=== PATIENT | male | born 1950 | race Caucasian/White ===

== ENCOUNTER 2025-02-26 15:44 | Inpatient (IN) | payer BC, MEDICARE ==
[~2025-02-26] VITALS: Ht 180.3 cm; Wt 86.4 kg
--- NOTE | 2025-02-26 16:31 | RADIOLOGY REPORT ---
DI KNEE, COMP 4 VW MIN, INDICATION: RIGHT KNEE PAIN TECHNICAL DATA: Frontal , oblique and lateral views were obtained of the right knee. COMPARISON: None FINDINGS: No fracture is identified. Medial, lateral and patellofemoral compartment joint spaces are maintained. Alignment is anatomic. Soft tissues are within normal limits. A joint effusion is demonstrated. Distal femur hardware appears intact. IMPRESSION: No acute fracture or dislocation of the right knee. Small knee joint effusion.
[2025-02-26] MEDS: HYDROcodone/acetaminophen 10/325mg tab PO ONE (17:21)
[2025-02-26 17:53] LABS: MEAN PLATELET VOLUME 8.5 FL (7.4-10.4); RED CELL DISTRIBUTION WIDTH 13.6 % (11.5-14.5)
[2025-02-26 18:10] LABS: CREATININE 0.94 MG/DL (0.60-1.10); TOTAL CARBON DIOXIDE 28.7 MMOL/L (24-32); eCRCL 76 ML/MIN; eGFR 79 ML/MIN
[2025-02-26] MEDS ORDERED: iohexol 300mg/ml 100ml inj. ONE (18:14)
--- NOTE | 2025-02-26 18:44 | Physician Documentation ---
History of Present Illness ~ Chief Complaint: Knee Pain Stated Complaint: R KNEE PAIN Time Seen by MD: 16:29 Primary Medical Doctor: None HPI A very pleasant 74-year-old male that presents to the emergency department for evaluation of significant pain associated with warmth and swelling to his right knee. 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 Drastically reduced range of motion unable to bear weight on the joint. Patient denies fev er chills nausea vomiting diarrhea at this time but does report progressive severe pain in the right knee. Patient reports he has had previous injuries to that knee but denies any injury today any falls twisting straining pop sensation or any other injury. No other symptoms reported at this time. Patient does not take any blood thinners. Tetanus witin 5 years: Yes Medication Reconciliation Allergies: Coded Allergies: Penicillins (Unverified Allergy, Unknown, 02/26/25) codeine (Unverified Allergy, Unknown, 02/26/25) Past Medical History Past Medical History: Hypertension, Hernia Past Surgical History: orthopedic surgeries Other Past Surgical History: hernia repair Alcohol Use: Abuse Physical Exam Vital Signs: Temperature: 99.2, Source: Temporal, Heart Rate: 98, Respiratory Rate: 18, BP: 103/63, Pulse Oximetry: 97, Weight: 86.360 Oxygen Flow Rate: 0 Progress Results/Orders Results/Orders Orders - MARIELOS PURDYP Us Soft Tissue Mass (02/26/25 16:44) Ct Lower Extremity (02/26/25 17:10) * Iv Access / Saline Lock * (02/26/25 17:11) Stat Ekg (02/26/25 ) Normal Saline 500ml Iv Soln (Sodium Chlo (02/26/25 19:30) Ceftriaxone/O4f-Fwqibpfv 1gm (Rocephin 1 (02/26/25 19:30) LA (02/26/25 19:26) Culture Blood (02/26/25 19:26) Completed Orders - MARIELOS PURDY KENNEL AIDE Us Soft Tissue Mass (02/26/25 16:44) Cbc/Diff (02/26/25 16:44) CMP (02/26/25 16:44) Hydrocodone/Apap 10/325 ([place] 10/325mg (02/26/25 16:55) Ct Lower Extremity (02/26/25 17:10) Iohexol 300mg/Ml 100ml Inj. (Omnipaque-3 (02/26/25 18:14) Metoprolol Tartrate Tablet (Lopressor Ta (02/26/25 19:30) Medications Received in ER Medications (Trade) Dose Ordered Sig/Dorie Route PRN Reason Start Time Stop Time Status Last Admin Dose Admin ([place] 10/325mg tab) 1 tab ONCE ONCE PO 02/26/25 16:55 02/26/25 16:56 DC 02/26/25 17:21 1 TAB Vital Signs 02/26/25 02/26/25 02/26/25 02/26/25 15:57 17:21 18:04 18:57 Temp 99.2 Pulse 98 110 Resp 16 18 18 16 B/P (MAP) 103/63 126/72 (90) Pulse Ox 97 99 O2 Flow Rate 0 02/26/25 19:12 Resp 19 B/P (MAP) Laboratory Tests Test 02/26/25 17:32 White Blood Count 15.2 H Red Blood Count 4.64 L Hemoglobin 14.3 Hematocrit 41.2 L Mean Corpuscular Volume 88.8 Mean Corpuscular Hemoglobin 30.9 Mean Corpuscular Hemoglobin Concent 34.8 Red Cell Distribution Width 13.6 Platelet Count 273 Mean Platelet Volume 8.5 Neutrophils (%) (Auto) 87.5 H Lymphocytes (%) (Auto) 4.9 L Monocytes (%) (Auto) 7.1 Eosinophils (%) (Auto) 0.1 Basophils (%) (Auto) 0.4 Neutrophils # (Auto) 13.3 H Lymphocytes # (Auto) 0.7 L Monocytes # (Auto) 1.1 H Eosinophils # (Auto) 0.0 Basophils # (Auto) 0.1 CBC Comment Sodium Level 136 Potassium Level 4.0 Chloride Level 102 Carbon Dioxide Level 28.7 Anion Gap 5 L Blood Urea Nitrogen 13 Creatinine 0.94 Estimated GFR/1.73 m2 79 BUN/Creatinine Ratio 13.8 Glucose Level 165 H Calcium Level 8.5 Total Bilirubin 0.7 Aspartate Amino Transf (AST/SGOT) 19 Alanine Aminotransferase (ALT/SGPT) 28 Alkaline Phosphatase 85 Total Protein 7.4 Albumin 3.8 Globulin 3.6 Albumin/Globulin Ratio 1.1 Chemistry Comments Medical Decision Making Additional information obtaine: other Findings 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, 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 Chief Complaint: Acute right knee pain, warmth, swelling, inability to bear weight History: Onset: Acute, several hours after walking with backpack blower No trauma, fall, twisting, or popping No fever, chills, nausea, vomiting, or diarrhea Progressive severe pain History of prior knee injuries No anticoagulant use Exam: Right knee: Significant warmth, swelling, severe pain, markedly reduced ROM, unable to bear weight No erythema Diagnostics: Labs: No leukocytosis X-ray: No fracture Ultrasound: Effusion present CT: Pending for further evaluation of effusion/septic joint Assessment: Acute monoarthritis with effusion and severe functional impairment. Differential includes septic arthritis, crystalline arthropathy (gout/pseudogout), acute osteoarthritis flare, and less likely traumatic or inflammatory etiologies. Septic arthritis is a critical consideration given the acute onset, severe pain, warmth, effusion, and inability to bear weight, despite absence of fever or leukocytosisthese findings do not exclude infection. Osteoarthritis and crystalline arthropathy remain possible, but the degree of acute functional loss and effusion is concerning for infection. Plan: Urgent arthrocentesis is indicated to evaluate for septic arthritis, as synovial fluid analysis (WBC count, Gram stain, culture, crystal analysis) is the most accurate diagnostic test and essential for early management decisions. Synovial fluid should be sent for cell count, differential, Gram stain, culture, and crystal analysis. Empiric antibiotics should be considered if clinical suspicion for septic arthritis remains high after aspiration, pending culture results. Continue supportive care and monitor for systemic symptoms. CT results will further inform management if effusion is large or loculated. MDM Rationale: The acute, atraumatic presentation with effusion and severe functional loss warrants exclusion of septic arthritis, as delay in diagnosis can result in significant morbidity. Absence of fever and normal peripheral WBC do not rule out septic arthritis. Arthrocentesis is both diagnostic and therapeutic, and may provide temporary symptom relief. Other causes (crystalline, OA, trauma) will be considered based on synovial fluid findings and imaging. Disposition: Await synovial fluid analysis and CT results. Reassess for systemic involvement. Consult orthopedics/rheumatology as indicated by findings. General Diff Dx:Considerations: Include: Abrasion, Contusion, Fracture, Hematoma, Laceration, Malunion, Neurovascular injury, Open fracture, Sprain, Ulcer, Other Knee Diff Dx:Considerations: Include: Abrasion, Arthritis, Contusion, DJD, Fracture-femur, Fracture-fibula, Fracture-patella, Fracture-tibia, Gout, Hematoma, Laceration, Meniscus injury, Neurovascular injury, Open fracture, Rheumatoid arthritis, Septic, Sprain, Sprain-MCL, Sprain-LCL, Sprain-ACL, Sprain-PCL, Other Ankle Diff Dx:Considerations: Include: Abrasion, Arthritis, Contusion, DJD, Fracture-metatarsal, Fracture-fibula, Fracture-tarsal, Fracture-tibia, Gout, Hematoma, Laceration, Malunion, Neurovascular injury, Nonunion, Open fracture, Osteomyelitis, Rheumatoid arthritis, Sprain, Septic, Ulcer, Other Foot Diff Dx:Considerations: Include: Abrasion, Arthritis, Cellulitis, Contusion, Dislocation, DJD, Fracture-metatarsal, Fracture-phalynx, Fracture-tarsal, Gout, Hematoma, Ingrown toenail, Laceration, Malunion, Neurovascular injury, Open fracture, Paronychia, Puncture, Rheumatoid, Sprain, Septic, Subungual hematoma, Ulcer, Other Toe Diff Dx:Considerations: Include: Abrasion, Cellulitis, Contusion, Dislocation, Felon, Fracture, Hematoma, Laceration, Neurovascular injury, Open fracture, Paronychia, Subungual hematoma, Other Departure Referrals: NO PRIMARY CARE PROVIDER (PCP) MARIELOS PURDY Feb 26, 2025 18:44
--- NOTE | 2025-02-26 18:55 | RADIOLOGY REPORT ---
ULTRASOUND SOFT TISSUE: REASON FOR EXAM: Swelling to the right knee rule out septic joint versus effusion. TECHNIQUE: Real-time sector scans in the transverse and longitudinal planes were obtained through the right knee. FINDINGS: There is a collection of fluid within the soft tissues at the anterior aspect of the right knee, predominantly superior to the patella and likely coming from the joint space. No fluid is seen anterior to the patella. IMPRESSION: Fluid superior to the patella likely within the suprapatellar bursa. Note that this study does not distinguish sterile knee effusion from a septic joint.
--- NOTE | 2025-02-26 19:08 | RADIOLOGY REPORT ---
INDICATION: Pain swelling warmth to right knee, rule out septic joint versus cellulitis COMPARISON: None TECHNIQUE: CT of the right knee was performed with contrast. Volume transverse images were obtained and reconstructed in multiple planes using bone and soft tissue algorithms. 100 mL of Omni 300 was injected. Radiation Dose Information: CT Dose: CTDI volume is 7.6 mGy. Dose-length product is 303 mGy*cm FINDINGS: The alignment is normal. No acute fracture or dislocation. Surgical fixation screws are seen in the lateral distal femur. Moderate effusion is seen in the suprapatellar recess. Septic joint is not excluded. The soft tissues are normal. IMPRESSION: 1. No acute fracture or dislocation. 2. Moderate effusion is seen in the suprapatellar recess. Septic joint is not excluded. All CT scans at this medical facility are performed using dose modulation techniques as appropriate to a performed exam including the following: Automated exposure control was utilized; adjustment of the MA and/or KV according to patient size; and use of iterative reconstruction technique.
[2025-02-26] MEDS: normal saline 500ml IV soln 500 ML IV SCH (20:08)
[2025-02-26] MEDS ORDERED: ATOR40TA72 PO (20:22)
[2025-02-26] MEDS ORDERED: METO25TA6 PO (20:22)
[2025-02-26] MEDS ORDERED: APIX5TAB3 PO (20:22)
[2025-02-26] MEDS ORDERED: ACET-3669 PO (20:22)
[2025-02-26] MEDS ORDERED: MELA3CAP2 PO (20:22)
[2025-02-26] MEDS ORDERED: TAMS-55 PO (20:22)
[2025-02-26] MEDS ORDERED: TURM500C4 PO (20:22)
[2025-02-26] MEDS ORDERED: TAMS-55 (20:22)
[2025-02-26] MEDS ORDERED: FLUT16SP26 BOTHNARES (20:22)
[2025-02-26] MEDS ORDERED: magnesium Cl slow-release 64mg tablet PO PRN (20:35)
[2025-02-26] MEDS ORDERED: ondansetron/PF 4mg/2ml inj IV PRN (20:35)
[2025-02-26] MEDS ORDERED: potassium Cl 20 mEq SR tablet PO PRN (20:35)
[2025-02-26] MEDS ORDERED: HYDROcodone/acetaminophen 5mg/325mg tablet PO PRN (20:35)
[2025-02-26] MEDS ORDERED: magnesium sulf-water 2g/50mL 50 ML IV PRN (20:35)
[2025-02-26] MEDS ORDERED: magnesium sulf-water 4G/100mL 100 ML IV PRN (20:35)
[2025-02-26] MEDS ORDERED: potassium Cl 40MEQ/1/2NS 520ml 520 ML IV PRN (20:35)
[2025-02-26] MEDS: morphine 4 MG/ML inj SYRINge IV ONE (21:03)
[2025-02-26] MEDS: ondansetron/PF 4mg/2ml inj IV ONE (21:03)
[2025-02-26 21:05] LABS: APTT 31 SECONDS (22-32)
[2025-02-26] MEDS: LIDOcaine 1% 30ml preserv. free vial IJ STA (21:05)
[2025-02-26] MEDS: amiodarone 150mg/dext, iso-os 100 ML IV ONE (21:13)
[2025-02-26 21:15] LABS: PRO BRAIN NATRIURETIC PEPTIDE 1162 PG/ML (0-125)
[2025-02-26] MEDS: amiodarone/D5 360MG/200ML BAG 200 ML IV SCH (21:58)
[2025-02-26] MEDS: CefTRIAXone/D5W-Rocephin 1gm 50 ML IV ONE (22:03)
[2025-02-26] MEDS: normal saline 1000ml 1,000 ML IV SCH (22:09)
[2025-02-26] MEDS: VANCOMYCIN 1.75GM/WATER FOR INJ (PEG) 350 ML IVPB IV ONE (22:43)
[2025-02-26 22:53] LABS: LEUKOCYTE ESTERASE ,URINE NEGATIVE (Neg); NITRITES, URINE NEGATIVE (Neg); OCCULT BLOOD,URINE SMALL (Neg)
[2025-02-26 22:57] LABS: UA COLLECTION TYPE CLN CATCH MIDSTREAM
[2025-02-26 23:00] LABS: SQUAMOUS EPITHELIAL CELL,UR FEW /LPF (FEW)
--- NOTE | 2025-02-26 23:09 | HISTORY AND PHYSICAL-Residence ---
History & Physical Providers to Resident Creating Document: VAHIDMICHEAL RES ~ History of Present Illness Primary Medical Doctor: None Reason for Admit\Complaint: Knee pain History of Present Illness This is a 74 year old male with past medical history of hypertension, knee replacement surgery presents to the ED with complaints of right knee pain. 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 He says that It started all of a sudden, with associated swelling. He rated the pain as 9/10 in intensity initially and was unable to bear weight on his right leg with the pain. Patient denies fevers, chills nausea vomiting diarrhea at this time but does report progressive severe pain in the right knee. Patient denies injuring his knee today and never had similar complaint in the past . However on examination there was a laceration present on the right leg and patient says that he scraped his leg last week when he was walking. Allergies: Coded Allergies: Penicillins (Unverified Allergy, Unknown, 02/26/25) codeine (Unverified Allergy, Unknown, 02/26/25) Home Medications Home Medications Active Reported Turmeric 500 mg Capsule (Turmeric/Turmeric Root Extract) 450 Mg-50 Mg Capsule 1 Cap PO Q12H 30 Days Melatonin 3 Mg Capsule 1 Cap PO HS 30 Days Acetaminophen ER (Acetaminophen) 650 Mg Tablet.er 1 Tab PO Q8H 21 Days Flomax* (Tamsulosin HCl) 0.4 Mg Cap.sr.24h 0.4 Mg PO DAILY Flomax* (Tamsulosin HCl) 0.4 Mg Cap.sr.24h Metoprolol Tartrate 25 Mg Tablet 1 Tab PO BID Atorvastatin Calcium 40 Mg Tablet 1 Tab PO DAILY Eliquis (Apixaban) 5 Mg Tablet 1 Tab PO BID Fluticasone Propionate 50 Mcg/Actuation [place].susp 1 Sprays BOTHNARES DAILY Past Medical History Past Medical History Hypertension Seizure Past Surgical History Surgical History Comment Knee replacement surgeries, both knees Past Social History Social History Comment Patient currently lives in a motor home along with his Patient has smoked on and off for the last 55 years, 5-6 cigarettes per day Stopped drinking alcohol four years ago No illicit drug use PCP at [facility]. Alcohol Use: Abuse ROS ROS Constitutional: Denies: no symptoms reported, Eyes: Denies: no symptoms reported ENT: Denies: no symptoms reported Respiratory: Denies: No symptoms reported Cardiovascular: Denies: No symptoms reported Gastrointestinal: Denies: No symptoms reported Genitourinary: Denies: no symptoms reported Neurological: Denies: no symptoms reported Musculoskeletal: Denies: Right knee pain Endocrine: Denies: no symptoms reported Exam Vitals: Vital Signs Date Time Temp Pulse Resp B/P (MAP) Pulse Ox O2 Delivery O2 Flow Rate FiO2 02/26/25 21:03 18 02/26/25 21:00 127 117/63 (81) 96 02/26/25 15:57 99.2 0 General: General: Awake, alert, oriented, not in acute distress HEENT: Conjunctive are pink, sclerae clear, no icterus, Neck: Supple, no JVD, no lymphadenopathy. Chest: Normal vesicular breath sounds heard, no wheezing, crackles. Cardiovascular: S1-S2 heard no gallops, no rubs, no murmurs Abdomen: soft, no tenderness, no guarding, no rigidity, no rebound tenderness Extremities: No edema, no cyanosis, peripheral pulsations intact Central Nervous System: No focal neurological deficits Musculoskeletal: Right knee joint is swollen, warm to touch, no erythema. Tender to palpation. Small Laceration present on the right leg (morales area). Skin: Warm and dry. Diagnostic Data Last Recorded Lab Results: 02/27/25 0616 02/27/25 0616 Diagnostic Data: Laboratory Tests Test 02/26/25 19:46 Activated Partial Thromboplast Time 31 SECONDS (22-32) Coagulation Comments Advance Care Planning Advanced Care plannin - 30 Minutes (Full code) Additional Plan Acute onset knee pain Likely due to underlying septic arthritis Sepsis -Patient meets SIRS criteria -Increased WBC count 15.2, procal normal -Lactic acid normal -CRP elevated 1.08, ESR normal -Right knee x-ray shows- No acute fracture or dislocation of the right knee. Small knee joint effusion. -Ultrasound findings showed collection of fluid within the soft tissues at the anterior aspect of the right knee, -predominantly superior to the patella and likely coming from the joint space. No fluid is seen anterior to the patella. -Lower extremity CT shows No acute fracture or dislocation. Moderate effusion is seen in the suprapatellar recess. Septic joint is not excluded. -arthrocentesis has been done in the ED and sent for analysis -Started patient on fluids NS 100 cc/hours -started patient on vancomycin and ceftriaxone. New onset AFib with RVR Yonis Vasc score 2 Patient says he has never been diagnosed or told about AFib in the past. Patient takes Eliquis at home, but is unsure why he takes it. EKG showed AFib with heart rate of 120 Consider starting metoprolol 12.5 b.i.d. once blood pressure is controlled. Patient denies any complaints of chest pain, palpitations, shortness of breath. Hypertension- Current blood pressure 117/63 Continue home medications once med rec is done Code status: Full code DVT profile: Subcu Heparin Diet: Heart healthy Micheal Garcia PGY-1 Date of Service: Feb 27, 2025 Billing Provider: FLOR TREVINO MD Addendum I agree with the residents assessment and plan as below: 74 year old male admitted with acute knee pain Plan: follow up arthrocentesis results continue vancomycin and ceftriaxone mIVF CCT 52 min using HIPPA compliant A/V technology MICHEAL GARCIA, RES Feb 26, 2025 23:09 FLOR TREVINO MD Feb 27, 2025 09:14
[2025-02-27] VITALS (9 sets, daily range): BP systolic 97–134; BP diastolic 55–75; PULSE 86–112; RESP 14–20; TEMP 97.2–98.6; O2SAT 95–98
--- NOTE | 2025-02-27 06:43 | ELECTROCARDIOGRAPH REPORT ---
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 Quintin Lake Measurements Intervals [place] Rate: 119 P: 0 AL: 0 QRS: 32 QRSD: 87 T: 76 QT: 275 QTc: 387 Interpretive Statements Atrial fibrillation Ventricular premature complex Low voltage, extremity leads Nonspecific repol abnormality, diffuse leads Electronically Signed On 02-27-2025 7:03:[address] Quintin Lake Please click the below link to view image of tracing.
[2025-02-27 06:44] LABS: MEAN PLATELET VOLUME 8.7 FL (7.4-10.4); RED CELL DISTRIBUTION WIDTH 14.0 % (11.5-14.5)
[2025-02-27 06:58] LABS: CHOL/HDL RATIO 1.9 (0.00-4.99); CREATININE 0.85 MG/DL (0.60-1.10); LDL CHOLESTEROL 41 MG/DL (50-100); TOTAL CARBON DIOXIDE 26.9 MMOL/L (24-32); eCRCL 84 ML/MIN; eGFR 89 ML/MIN
[2025-02-27] MEDS: K and/or MAG REPLACEMENT MC SCH (08:00)
[2025-02-27] MEDS: docusate sod 100mg capsule PO SCH (08:18)
[2025-02-27] MEDS: normal saline 1000ml 1,000 ML IV ONE (09:59)
[2025-02-27] MEDS: HYDROcodone/acetaminophen 10/325mg tab PO PRN (12:30)
[2025-02-27] MEDS: vancomycin/NS 1 GM ADD-VANTAGE 250 ML IV SCH (12:31)
[2025-02-27 15:16] LABS: LYMPHOCYTES,SYNOVIAL FLUID 2.0 % (0-75); MONOCYTES,SYNOVIAL FLUID 3.0 % (0-0); NEUTROPHILS,SYNOVIAL FLUID 95.0 % (0-25)
[2025-02-27 15:17] LABS: APPEARANCE,SYNOVIAL FLUID CLOUDY; COLOR,SYNOVIAL FLUID YELLOW; SYN RBC 6500 /CU MM (0); SYN WBC 88000 /CU MM (0-200)
[2025-02-27 15:19] LABS: CRYSTAL ID, SYN FLD CA PYROPHOSPHATE; SYNOVIAL FLUID CRYSTALS QT FEW
[2025-02-27] MEDS: metoprolol tartrate 1mg/ml inj IV ONE (17:13)
[2025-02-27] MEDS: CefTRIAXone/D5W-Rocephin 1gm 50 ML IV SCH (17:15)
--- NOTE | 2025-02-27 17:17 | PROGRESS NOTE- Residence ---
Progress Note - Resident Providers to CC Resident Creating Document: ALLA ORONA RES ~ Central Line/PICC still needed: N\A Potter-Non Protocol Potter Indications Met/Not Met: F/C Indications Not Met Antibiotic Timeout Antibiotic Ordered?: Yes Subjective Patient examined bedside. He complains of pain in his right knee, not able to bear weight, not able to move. There is swelling, tenderness and localized received temperature in his right knee. He rates the pain as 7/10, dull aching, nonradiating. Objective Vital Signs Date Time Temp Pulse Resp B/P (MAP) Pulse Ox O2 Delivery O2 Flow Rate FiO2 02/27/25 15:00 98.1 112 20 109/65 (80) 97 Room Air 02/26/25 15:57 0 Result Diagram: 02/27/2561502/27/25 06 General: Well alert, well oriented, not confused, not agitated, not in acute distress, well cooperated during the physical. HEENT: Malar rash on his face Conjunctive are pink, sclerae clear, no icterus, pupil is equal in both sides, reactive to light, no ear discharge, no pharyngeal erythema or an edema. Neck: Supple, no JVD, no lymphadenopathy and thyromegaly. Chest: Equal air entry on both lungs, no added sounds, no wheeze. Cardiovascular: S1-S2 irregular tachycardia no gallops, no rubs, no murmurs Abdomen: No visible peristalsis, Bowel sounds present on auscultation, soft, nontender, no guarding, no rigidity Extremities: Swelling of the right knee, with tenderness and localized raised temperature, scar from previous ACL repair surgery on right knee capillary refill intact, peripheral pulsations are intact on both sides Central Nervous System: No focal neurological deficits, no motor or sensory weakness in all 4 extremities, could move all 4 extremities, 2+ deep tendon reflexes, negative Babinski. Musculoskeletal: No joint swelling, deformities, inflammations, and no scoliosis and back tenderness Skin: Warm and dry. Coagulation Studies Laboratory Tests Test 02/26/25 19:46 Activated Partial Thromboplast Time 31 SECONDS (22-32) Coagulation Comments Counseling Services Smoking & Tobacco Cessation: > 10 Minutes Advance Care Planning Advanced Care planning: N/A Assessment Assessment This is a 74-year-old man with past medical history of hypertension, DVT, mechanical fall and traumatic head injury with 1 episode of seizure, alcohol use disorder sober since 60 years, who came to the hospital with complaints of swelling and pain in his right knee, unable to bear weight. He underwent arthrocentesis in the ER and was started on ceftriaxone vancomycin. Arthrocentesis shows a pruritic picture with calcium pyrophosphate crystals. He is currently in sepsis with a new onset AFib with RVR managed by fluid resuscitation and metoprolol. Imaging shows an associated bursitis. Orthopedic surgeon, Dr. Wheat was consulted, awaiting recommendation. Plan Plan Sepsis due to septic arthritis Septic arthritis possibly due to pseudogout -sepsis criteria met with tachycardia, leukocytosis, suspected source of infection -WBC 15.3 and trending up, raised C-reactive protein, normal ESR -imaging including x-ray, ultrasound, CT shows inflammation around the joint pointing towards bursitis, not excluding septic arthritis -he underwent arthrocentesis in the ED [place] [address] with neutrophilia, RBC count of 6500 with calcium pyrophosphate crystals. Plan: -Patient received 2 L bolus fluids and is on 100 mL/hour fluid resuscitation -ceftriaxone 1 g IV, vancomycin pharmacy to dose day 2 -awaiting synovial fluid culture -orthopedic surgeon consulted, awaiting recommendation New onset AFib with RVR Yonis Vasc score 4 AFib most likely due to sepsis , TSH normal Heart rate ranging from 100s to 120s, asymptomatic. Ordered echo and U tox. Patient received loading dose of amiodarone in the ER. The patient is on Eliquis so past history of DVT, we will continue the same. The patient is on metoprolol tartrate 25 mg p.o. b.i.d. for hypertension, we will continue the same Monitor vitals. Comorbidities Hypertension -continue home medication metoprolol tartrate 25 mg p.o. b.i.d. History of DVT-continue home medication Eliquis 5 mg p.o. b.i.d. Dyslipidemia-continue home medication atorvastatin 40 mg p.o. daily BPH-continue home medication tamsulosin 0.4 mg p.o. daily Tobacco use disorder- patient educated to reduce and eventually quit smoking Code status: Full code DVT prophylaxis: Eliquis 5 mg p.o. b.i.d. Analgesia/sedation: Morphine/[place]/tube: PIV GI prophylaxis: None Nutrition: Heart healthy PT: Ordered. Prognosis: Guarded Disposition: Monitor vitals, continue medical management . Awaiting ortho recommendation, awaiting synovial fluid culture. Alla Orona MD PGY1, Internal Medicine [facility] Date of Service: Feb 27, 2025 Billing Provider: JUAN PABLO ANGEL MD Common Visit Codes: [id number] INP/OBS CARE(HIGH) ALLA ORONA, RES Feb 27, 2025 17:17 JUAN PABLO ANGEL MD Feb 28, 2025 07:17
[2025-02-28] VITALS (15 sets, daily range): BP systolic 87–117; BP diastolic 47–68; PULSE 99–120; RESP 12–23; TEMP 97.3–98.4; O2SAT 94–97
[2025-02-28 06:33] LABS: MEAN PLATELET VOLUME 9.3 FL (7.4-10.4); RED CELL DISTRIBUTION WIDTH 13.7 % (11.5-14.5)
[2025-02-28 06:55] LABS: CREATININE 0.71 MG/DL (0.60-1.10); TOTAL CARBON DIOXIDE 23.7 MMOL/L (24-32); eCRCL 100 ML/MIN; eGFR > 90 ML/MIN
--- NOTE | 2025-02-28 06:59 | RADIOLOGY REPORT ---
CHEST RADIOGRAPH Indication: PRE-OP Technique: Single frontal view of the chest was obtained Comparison: None IMPRESSION: Heart appears normal in size. The lungs appear clear without focal airspace opacity, effusion, or pneumothorax. Multiple right rib fractures posteriorly which appear age-indeterminate. Correlation with clinical history and findings is recommended. Consider CT if clinically indicated.
[2025-02-28] MEDS: potassium Cl 20 mEq SR tablet PO PRN (07:23)
[2025-02-28] MEDS ORDERED: metoprolol succinate 25mg (24-HOUR) SR. Tablet PO SCH (08:00)
--- NOTE | 2025-02-28 09:53 | ELECTROCARDIOGRAPH REPORT ---
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 LEONELA De Jesus Measurements Intervals [place] Rate: 105 P: 0 [place]: 0 QRS: 73 QRSD: 103 T: 82 QT: 306 QTc: 405 Interpretive Statements Atrial fibrillation Borderline low voltage, extremity leads Nonspecific repol abnormality, lateral leads Artifact in lead(s) I,II,aVR,aVL,aVF and baseline wander in lead(s) III,aVL,V1,V2,V4 Electronically Signed On 02-28-2025 19:41:[address] LEONELA De Jesus Please click the below link to view image of tracing.
[2025-02-28] MEDS ORDERED: BUPIVAcaine 2.5mg/ml inj 50ml vial (contains preservative) ONE (10:04)
[2025-02-28 10:11] LABS: INR 1.1 INR
[2025-02-28] MEDS ORDERED: labetalol 20mg/4ml (5mg/ml) syringe IV PRN (10:35)
[2025-02-28] MEDS ORDERED: ondansetron/PF 4mg/2ml inj IV PRN (10:35)
[2025-02-28] MEDS ORDERED: morphine 4 MG/ML inj SYRINge IV PRN ×4 (10:35→10:46)
[2025-02-28] MEDS: ringers solution, lacted 1,000 ML IV SCH (10:35)
[2025-02-28] MEDS ORDERED: HYDROmorphone inj. 0.5 MG/0.5 ML DISP.SYRIN IV PRN ×2 (10:35)
[2025-02-28] MEDS ORDERED: fentaNYL/PF 50MCG/1 ML 2ML syringe IV PRN ×2 (10:35)
[2025-02-28] MEDS ORDERED: enalaprilat 1.25mg/ml 2ml vial IV PRN (10:35)
[2025-02-28] MEDS ORDERED: fentaNYL /PF 50mcg/ml 5ml ampule ONE (10:40)
[2025-02-28] MEDS ORDERED: midazolam 1 mg/ML 2ml injection ONE (10:40)
[2025-02-28] MEDS ORDERED: propofol inj 20 ML IV ONE (10:50)
[2025-02-28] MEDS ORDERED: LIDOcaine 2% (20mg/ml) 5ml vial ONE (10:50)
--- NOTE | 2025-02-28 11:07 | PROGRESS NOTE- Residence ---
Progress Note - Resident Providers to CC Resident Creating Document: ALLA ORONA, TIFFANY ~ Central Line/PICC still needed: N\A Potter-Non Protocol Potter Indications Met/Not Met: F/C Indications Not Met Antibiotic Timeout Antibiotic Ordered?: Yes Subjective Patient examined bedside. Still complaining pain in his right knee, well controlled with medication. He is posted for arthroscopy with Dr. Wheat today. No complaints of chest pain, palpitation, shortness of breath, dizziness. No acute symptoms overnight. Objective Vital Signs Date Time Temp Pulse Resp B/P (MAP) Pulse Ox O2 Delivery O2 Flow Rate FiO2 02/28/25 10:34 116 18 97 02/28/25 08:00 Room Air 02/28/25 06:57 97.9 114/68 (83) 02/26/25 15:57 0 Result Diagram: 02/28/25 0542 02/28/25 0542 General: Well alert, well oriented, not confused, not agitated, not in acute distress, well cooperated during the physical. HEENT: Malar rash on his face Conjunctive are pink, sclerae clear, no icterus, pupil is equal in both sides, reactive to light, no ear discharge, no pharyngeal erythema or an edema. Neck: Supple, no JVD, no lymphadenopathy and thyromegaly. Chest: Equal air entry on both lungs, no added sounds, no wheeze. Cardiovascular: S1-S2 irregular tachycardia no gallops, no rubs, no murmurs Abdomen: No visible peristalsis, Bowel sounds present on auscultation, soft, nontender, no guarding, no rigidity Extremities: Swelling of the right knee, with tenderness and localized raised temperature, scar from previous ACL repair surgery on right knee capillary refill intact, peripheral pulsations are intact on both sides Central Nervous System: No focal neurological deficits, no motor or sensory weakness in all 4 extremities, could move all 4 extremities, 2+ deep tendon reflexes, negative Babinski. Musculoskeletal: No joint swelling, deformities, inflammations, and no scoliosis and back tenderness Skin: Warm and dry. Coagulation Studies Laboratory Tests Test 02/26/25 19:46 02/28/25 09:52 Activated Partial Thromboplast Time 31 SECONDS (22-32) Prothrombin Time 11.5 SECONDS (9.0-12.0) INR International Normalized Ratio 1.1 INR Coagulation Comments Assessment Assessment This is a 74-year-old man with past medical history of hypertension, DVT, mechanical fall and traumatic head injury with 1 episode of seizure, alcohol use disorder sober since 60 years, who came to the hospital with complaints of swelling and pain in his right knee, unable to bear weight. He underwent arthrocentesis in the ER and was started on ceftriaxone vancomycin. Arthrocentesis shows a pruritic picture with calcium pyrophosphate crystals. He is currently in sepsis with a new onset AFib with RVR managed by fluid resuscitation and metoprolol. Imaging shows an associated bursitis. Posted for arthroscopy with Dr. Wheat today. Plan Plan Inflammatory arthritis possibly due to pseudogout -vitals: AFib with RVR, systolic blood pressures in 110. -WBC and inflammatory markers downtrending today. -imaging including x-ray, ultrasound, CT shows inflammation around the joint pointing towards bursitis, not excluding septic arthritis -[place] [address] with neutrophilia, RBC count of 6500 with calcium pyrophosphate crystals. Plan: -Stop Fluids after surgery due to elevated NT proBNP. -stopped antibiotics since the arthritis might most likely be in inflammatory in etiology -awaiting synovial fluid culture -posted for arthroscopy today with Dr. Wheat -case discussed with ID, Dr. Cabrera. She recommended a wait for synovial fluid culture before doing a consultation. New onset AFib with RVR Yonis Vasc score 4 AFib most likely due to sepsis , TSH normal Heart rate ranging from 100s to 120s, asymptomatic. Awaiting echo. Patient on home medication Eliquis and metoprolol tartrate 25 mg p.o. b.i.d., which does not seem to be controlling his heart rate. We can not further increases his dose of metoprolol due to soft blood pressure. We will switch the medication to Cardizem extended release 60 mg q.12h Acute congestive heart failure with unknown ejection fraction Awaiting echo, NT proBNP 1162 Stopped fluids, held Lasix currently in view of ongoing inflammation Strict I&Os and daily weights. Hypokalemia Potassium 3.3, on hypokalemia/hypokalemia protocol. Comorbidities Hypertension -continue home medication metoprolol tartrate 25 mg p.o. b.i.d. History of DVT-continue home medication Eliquis 5 mg p.o. b.i.d. Dyslipidemia-continue home medication atorvastatin 40 mg p.o. daily BPH-continue home medication tamsulosin 0.4 mg p.o. daily Tobacco use disorder- patient educated to reduce and eventually quit smoking Code status: Full code DVT prophylaxis: Eliquis 5 mg p.o. b.i.d. Analgesia/sedation: Morphine/[place] Line/tube: PIV GI prophylaxis: None Nutrition: Heart healthy PT: Ordered. Prognosis: Guarded Disposition: Monitor vitals, continue medical management . Awaiting synovial fluid culture. Alla Orona MD PGY1, Internal Medicine [facility] Date of Service: Feb 28, 2025 Billing Provider: JUAN PABLO ANGEL MD Common Visit Codes: [id number] INP/OBS CARE(HIGH) ALLA ORONA, RES Feb 28, 2025 11:07 JUAN PABLO ANGEL MD Mar 01, 2025 06:42
[2025-02-28] MEDS ORDERED: ROPIVAcaine 0.5% (5mg/ml) 30ml vial ONE ×2 (11:14→11:21)
[2025-02-28] MEDS ORDERED: dexamethasone sod phosphate 4mg/ml inj. ONE (11:14)
--- NOTE | 2025-02-28 11:29 | ANESTHESIA RECORDS ---
Nerve Block Providers to CC ~ Diagnosis: Nerve Block requested by: MAURA SANTO MD Neuraxial/Peripheral Nerve Block requested for Post-operative analgesia by Physician above DIAGNOSIS: Post-operative pain. (Body Area) Shoulder: [ ] Arm: [ ] Hand: [ ] Hip: [ ] Knee: [___Right ] Ankle: [ ] Foot: [ ] Leg: [ ] Abdomen: [ ] Other: [ ] Post-operative pain expected to be/is inadequately managed by oral or IV medicines. Regional anesthetic expected to facilitate rehabilitation and/or discharge from facility. Other:[ ] Procedure Performed: Femoral / Saphenous: Right Time out Done?: Yes Time of Time out: 11:55 Procedure Details: PROCEDURE DETAILS: Risks, benefits and alternatives explained Informed consent obtained, and patient wishes to proceed Conscious sedation with indicated monitors Patient positioned, pertinent anatomy defined, sterile technique used Needle used: [ ] 3 1/8 inch Stimuplex Ultra 22ga [x ] 4 inch Stimuplex Ultra 20ga [ ] 6 inch Stimuplex Ultra 20ga [ ] 6 inch, Quikbloc over the needle catheter set 20ga [ ] 4 inch Quikbloc over the needle catheter set 20ga [ ]Other: [ ] Loss of twitch @ [ 0.4 ]mA [x ] Single Injection [ ] Catheter Ultrasound Guidance Used: [x ] Yes [ ] No Attempts:[ once ] Medicines injected: [ ]Clonidine Amt:[ ] [x ]Dexamethasone Amt:[____3 mgs ] [x ]Ropivacaine Amt:[ 0.5% 30 cc ] [ ]Bupivacaine Amt:[ ] [ ]Lidocaine Amt:[ ] [ ]Exparel 1.33%:[ ] [ ]Epinephrine Amt[ ] [ ]Other: [ ] Intermittent aspiration during local anesthetic administration No symptoms of intraneural or intravenous injection Patient tolerated procedure well Comments Right Femoral nerve block. Pt supine. Easy visualization of the Femoral nerve and Femoral vessels with ultrasound probe below the groin. Needle entered from lateral approach. 1% xylocaine local anesthetic. Patellar twitch noted Meaningful conversation t throughout. No Pain or discomfort during injection DESI OROURKE MD Feb 28, 2025 11:29
[2025-02-28] MEDS: VANCOMYCIN LEVEL IV ONE (11:45)
[2025-02-28] MEDS ORDERED: ondansetron/PF 4mg/2ml inj ONE (12:01)
--- NOTE | 2025-02-28 12:05 | CONSULTATION REPORT ---
History of Present Illness Providers to CC ~ Reason for Admit\Admit Dx: Knee pain Refering MD: None History of Present Illness Orthopedic consultation 02/28/2025. History of present illness: 74-year-old male a spontaneous onset atraumatic in nature of right knee pain and swelling. Swelling to the point where he was unable to ambulate and presented himself to the emergency room who presented with the potential for aseptic right knee was placed of the hospitalist service with and after a knee aspiration was performed intravenous antibiotics were started. I was consulted to evaluate for potential need for orthopedic decompression of the right knee. Past medical history is significant for atrial fib on Eliquis which was held upon his admission. Otherwise is enjoying good health was not diabetic. Review of systems: He specifically denies any other joint pain denies any traumatic accident or injury. Examination: Right knee shows a gross effusion and slight erythema with significant temperature gradient to his right knee. He has a 10 degree flexion contracture was knee secondary to pain and swelling and his limited flexion because of pain as well. He is unable to weightbear. Good distal pulses good capillary refill no active drainage. Calf muscles are soft palpation and has full range of motion with ankle dorsiflexion and plantar flexion with actively and passively without increased pain. Range of motion of the knee is painful and limited. X-rays are unremarkable with a history of potential ACL reconstruction done in several decades ago. Knee aspiration was positive for many white blood cells no specific cell count cultures are pending. CT scan shows a gross effusion can not rule out septic arthritis. Assessment: Septic arthritis right knee acute onset. Plan: This will require lavage using arthroscopic instrumentation and placement of the intra-articular knee drain. Patient has agreed to proceed with surgery obtained informed consent discussing with the indications risks benefits limitations and potential complications of the surgery. To be placed in the surgery schedule as soon as possible. Thank you for consultation Allergies: Coded Allergies: Penicillins (Unverified Allergy, Unknown, 02/26/25) codeine (Unverified Allergy, Unknown, 02/26/25) Home Medications Home Medications Active Reported Turmeric 500 mg Capsule (Turmeric/Turmeric Root Extract) 450 Mg-50 Mg Capsule 1 Cap PO Q12H 30 Days Melatonin 3 Mg Capsule 1 Cap PO HS 30 Days Acetaminophen ER (Acetaminophen) 650 Mg Tablet.er 1 Tab PO Q8H 21 Days Flomax* (Tamsulosin HCl) 0.4 Mg Cap.sr.24h 0.4 Mg PO DAILY Flomax* (Tamsulosin HCl) 0.4 Mg Cap.sr.24h Metoprolol Tartrate 25 Mg Tablet 1 Tab PO BID Atorvastatin Calcium 40 Mg Tablet 1 Tab PO DAILY Eliquis (Apixaban) 5 Mg Tablet 1 Tab PO BID Fluticasone Propionate 50 Mcg/Actuation [place].susp 1 Sprays BOTHNARES DAILY Past Family History Family History: Patient reports no known family medical history. Physical Exam Last Vital Signs Recorded: Temperature: 98.4, Source: Temporal, Heart Rate: 104, Respiratory Rate: 16, BP: 117/66, Pulse Oximetry: 97, Weight: 86.360 Results Diagram Lab Result Diagram: 02/28/25 0542 02/28/25 0542 MAURA SANTO MD Feb 28, 2025 12:05
[2025-02-28] MEDS ORDERED: acetaminophen 1,000mg/100ml IV 100 ML IV ONE (12:06)
--- NOTE | 2025-02-28 12:11 | OPERATIVE REPORT ---
Operative Report Providers to ~ Date of Procedure: Feb 28, 2025 Pre-Operative Diagnosis: Knee pain Post-Operative Diagnosis SAME as PRE-Op gross purulent appearing fluid was evacuated with the knee consistent with a septic arthritis acute onset Procedure Performed Rotation lavage arthroscopically assisted placement of the intra-articular knee Hemovac drain. Cultures were taken Surgeon: Blaine Santo MD Recovery Coach None Anesthesiologist: Naveen Springer Type of Anesthesia: General, Other (Right femoral nerve block for postop pain management by anesthesia) Findings: Intra-articular knee aspiration arthrotomy revealed gross purulent. Exited. Cu ltures were taken Complications None Prosthetics\Implants used: Hemovac medium Hemovac drain was placed intra-articularly exited out superiorly laterally Estimated Blood Loss: Less than 100 cc Specimen Removed: Exudate was removed Description of Procedure: Patient was taken to the operating room on an urgent basis due to suspicious suspicion for a septic arthritis.. Informed consents were obtained once in the operating room he was given a general anesthetic after being placed in the OR table in the supine position of the left leg was placed in an SCD device well- padded operative thigh tourniquet was placed in his right leg leg was now prepped and draped in usual sterile orthopaedic fashion. Surgical time-out was taken protocol and the case was begun. Esmarch was used after the leg had been elevated for 10+ minutes during the prep tourniquet was insufflated to 275. Tourniquet time was less than 30 minutes. Lateral incision was made following a previous incision entry into the knee was done of the trying to trocar and cannula gross purulent material exited out the knee through the cannula this was culture. The knee was now irrigated with nor mal saline through the cannula. 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 Medial compartment had some grade 2 and grade 3 degenerative changes of the medial femoral condyle lateral compartment was free of any degenerative changes meniscus were intact moderate to significant synovitis was noted throughout the knee making it difficulty to visualize cruciate tissues. After a proximally 2 L of normal saline has irrigated through the knee a medium Hemovac drain was placed through the lateral incision out exiting proximally and laterally to close suction. Arthroscopic portal was closed with a figure-of- eight and vertical mattress sutures of 4-0 nylon sterile dressings were applied and held in position with op-site dressing clean and Johny wrap. Tourniquet was released good distal pulses and capillary refill returned to the extremity were no apparent perioperative complications needle and sponge count was reported Counts repoted as correct: Yes BLAINE SANTO MD Feb 28, 2025 12:11
[2025-02-28] MEDS: diltiazem SR 60mg capsule (twice daily) PO SCH (19:49)
[2025-03-01] VITALS (8 sets, daily range): BP systolic 87–110; BP diastolic 54–65; PULSE 95–107; RESP 12–22; TEMP 97.2–98.6; O2SAT 92–97
[2025-03-01 06:45] LABS: MEAN PLATELET VOLUME 8.9 FL (7.4-10.4); RED CELL DISTRIBUTION WIDTH 13.5 % (11.5-14.5)
[2025-03-01 06:57] LABS: CREATININE 0.68 MG/DL (0.60-1.10); TOTAL CARBON DIOXIDE 26.1 MMOL/L (24-32); eCRCL 105 ML/MIN; eGFR > 90 ML/MIN
[2025-03-01] MEDS ORDERED: vancomycin/NS 1 GM ADD-VANTAGE 250 ML IV SCH (08:00)
[2025-03-01] MEDS: vancomycin/NS 1 GM ADD-VANTAGE 250 ML IV SCH (08:51)
--- NOTE | 2025-03-01 09:36 | CONSULTATION REPORT - RESIDENT ---
Consult Providers to CC Resident Creating Document: DILAN LUIS RES History of Present Illness Reason for Admit\Complaint: Right knee pain History of Present Illness 74-year-old male patient presented to the hospital with chief complaint of right knee pain. The patient states that he is currently [place], on Saturday while he was cleaning he suddenly noticed right knee pain, sharp type, 8/10 in intensity without radiation. As per patient this is the 2nd time that he has experienced this pain, he describes that the 1st time that he presented a similar pain was in 1983 when he had and ACL injury for which he underwent ACL repair. The patient states that six weeks ago he had a pack bite at the level of the right thigh after which it became really itchy and red, last for three weeks and then resolved by itself. The patient denied any secretion, fever, pain. The patient underwent arthrocentesis during the weekend [place] [address], neutrophils of 95 and calcium pyrophosphate in the synovial fluid. In addition the patient also has a synovial fluid culture which is showing Gram-positive cocci. Allergies: Coded Allergies: Penicillins (Unverified Allergy, Unknown, 02/26/25) codeine (Unverified Allergy, Unknown, 02/26/25) Home Medications Home Medications Active Reported Turmeric 500 mg Capsule (Turmeric/Turmeric Root Extract) 450 Mg-50 Mg Capsule 1 Cap PO Q12H 30 Days Melatonin 3 Mg Capsule 1 Cap PO HS 30 Days Acetaminophen ER (Acetaminophen) 650 Mg Tablet.er 1 Tab PO Q8H 21 Days Flomax* (Tamsulosin HCl) 0.4 Mg Cap.sr.24h 0.4 Mg PO DAILY Flomax* (Tamsulosin HCl) 0.4 Mg Cap.sr.24h Metoprolol Tartrate 25 Mg Tablet 1 Tab PO BID Atorvastatin Calcium 40 Mg Tablet 1 Tab PO DAILY Eliquis (Apixaban) 5 Mg Tablet 1 Tab PO BID Fluticasone Propionate 50 Mcg/Actuation [place].susp 1 Sprays BOTHNARES DAILY Past Medical History Past Medical History Hypertension DVT BPH Dyslipidemia Tobacco use disorder Past Surgical History Surgical History Comment Orthopedic surgery of the right knee in the 1983. Family History Family History: Patient reports no known family medical history. Exam Vitals: Vital Signs Date Time Temp Pulse Resp B/P (MAP) Pulse Ox O2 Delivery O2 Flow Rate FiO2 03/01/25 08:37 20 03/01/25 07:53 97.7 103 110/60 (77) 96 03/01/25 02:00 Room Air 03/01/25 00:50 0.0 93 Physical exam: General: Awake, alert, oriented. No acute distress. Well-developed, hydrated and well-built nourished. No anemia, Jaundice or clubbing. HEENT: Conjunctive are pink, sclerae clear, no icterus, pupil is equal in both sides, reactive to light, no ear discharge, no pharyngeal erythema or an edema. Neck: Supple, no adenopathy, thyromegaly. Trachea is midline. No JVD. Chest: Respiratory: Vesicular breath sounds. No ronchi, crepitus or wheezing. Resonance is normal upon percussion of all lung pandey. Cardiovascular: S1-S2 regular sinus rhythm and, regular rate, no gallops, no rubs, no murmurs Abdomen: No visible distention, Bowel sounds present on auscultation, on palpation: soft, nontender, no guarding, no rigidity. Extremities: No obvious deformities, no pitting edema bilaterally, capillary refill intact, peripheral pulsations are intact on both sides, presence of wound VAC at the level of the right knee. Neurologic: Mental status: alert and conscious, oriented to place, person and time, preserved memory, normal speech. Cranial nerves I-XII: Normal. Motor system: Preserved power, coordination, no evidenced involuntary movements, strength 5/5 in four extremities. Skin: Warm and dry. Diagnostic Data Last Recorded Lab Results: 03/01/25 0556 03/01/25 0556 Diagnostic Data: Laboratory Tests Test 02/26/25 19:46 02/28/25 09:52 Activated Partial Thromboplast Time 31 SECONDS (22-32) Prothrombin Time 11.5 SECONDS (9.0-12.0) INR International Normalized Ratio 1.1 INR Coagulation Comments Additional Plan Assessment and plan: 74-year-old male patient presented to the hospital with chief complaint of right knee pain. Coexistent septic arthritis with pseudogout: The patient presented to the hospital with chief complaint of right knee pain which started suddenly, as per patient he presented back bite six weeks ago after which he presented some redness without secretion at the level of the right thigh-this resolved by its own after three weeks. Initial right knee aspirate growing Gram-positive cocci, which is reinforced by the right knee culture obtained on 02/28/2025 at surgery with positive Gram stain. Recommendations: Continue vancomycin and naproxen. We will follow sensitivity which still pending. The patient will require antibiotic therapy for four weeks. Other comorbidities: New AFib with RVR, CHF, hypokalemia, hypertension, H/O of DVT, dyslipidemia, BPH, tobacco use disorder: Appropriately managed by primary team. Resident MD attestation: Patient was seen, examined and discussed with the attending MD, Dr. Angeles. Dilan Cevallos Internal Medicine Resident [facility] Date of Service: Mar 01, 2025 Billing Provider: RAH ANGELES MD Addendum Agree with above note. Patient seen and examined with Dr. Cevallos. He appears to have septic arthritis of knee due to gram-positive pathogen in setting of pseudogout. Continue vancomycin. Setting up IV antibiotics at current place of residence may be difficult. Will consider use of oral linezolid. DILAN LUIS, RES Mar 01, 2025 09:36 RAH ANGELES MD Mar 01, 2025 22:30
--- NOTE | 2025-03-01 16:25 | PROGRESS NOTE- Residence ---
Progress Note - Resident Providers to CC Resident Creating Document: ALLA ORONA, TIFFANY ~ Central Line/PICC still needed: N\A Potter-Non Protocol Potter Indications Met/Not Met: F/C Indications Not Met Antibiotic Timeout Antibiotic Ordered?: Yes Subjective Patient examined bedside. Postop day 1 arthroscopy with lavage and drain placement with Dr. Wheat. His swelling of the knee has significantly improved since yesterday, he is not complaining of any pain currently. No acute symptoms overnight. No complaints of palpitation, chest pain, dizziness, shortness of breath. Objective Vital Signs Date Time Temp Pulse Resp B/P (MAP) Pulse Ox O2 Delivery O2 Flow Rate FiO2 03/01/25 15:32 Room Air 0.0 03/01/25 15:31 96 21 03/01/25 11:00 97.7 100 17 88/54 (65) Result Diagram: 03/01/25 0556 03/01/25 0556 General: Well alert, well oriented, not confused, not agitated, not in acute distress, well cooperated during the physical. HEENT: Malar rash on his face Conjunctive are pink, sclerae clear, no icterus, pupil is equal in both sides, reactive to light, no ear discharge, no pharyngeal erythema or an edema. Neck: Supple, no JVD, no lymphadenopathy and thyromegaly. Chest: Equal air entry on both lungs, no added sounds, no wheeze. Cardiovascular: S1-S2 irregular tachycardia no gallops, no rubs, no murmurs Abdomen: No visible peristalsis, Bowel sounds present on auscultation, soft, nontender, no guarding, no rigidity Extremities: Right knee, bandaged. Surgical site looks clean, no soakage of bandage. Drain present. Central Nervous System: No focal neurological deficits, no motor or sensory weakness in all 4 extremities, could move all 4 extremities, 2+ deep tendon reflexes, negative Babinski. Musculoskeletal: No joint swelling, deformities, inflammations, and no scoliosis and back tenderness Skin: Warm and dry. Coagulation Studies Laboratory Tests Test 02/26/25 19:46 02/28/25 09:52 Activated Partial Thromboplast Time 31 SECONDS (22-32) Prothrombin Time 11.5 SECONDS (9.0-12.0) INR International Normalized Ratio 1.1 INR Coagulation Comments Assessment Assessment This is a 74-year-old man with past medical history of hypertension, DVT, mechanical fall and traumatic head injury with 1 episode of seizure, alcohol use disorder sober since 60 years, who came to the hospital with complaints of swelling and pain in his right knee, unable to bear weight. Synovial fluid grew strep dysgalactiae sensitive to ampicillin. He is currently on vancomycin. ID consulted. Postop day 1 arthroscopy with lavage and drain placement with Dr. Wheat. Awaiting echo results. Plan Plan Sepsis due to septic arthritis Septic arthritis possibly due to pseudogout -sepsis criteria met with tachycardia, leukocytosis, suspected source of infection -vitals: AFib with RVR, systolic blood pressures in 110. -WBC and inflammatory markers downtrending today. -synovial fluid culture grew strep dysgalactiae sensitive to ampicillin, ID consulted, awaiting recommendation. -postop day 1 arthroscopy with lavage and drain placement. Plan: -Stop Fluids after surgery due to elevated NT proBNP. -currently on vancomycin, day 3 New onset AFib with RVR Yonis Vasc score 4 AFib most likely due to sepsis , TSH normal Heart rate in 100s to 120s. Awaiting echo. Patient was transitioned to Cardizem 60 mg q.12h sustained release b.i.d. yesterday. We will increase his dose to Cardizem 180 mg extended release daily day. Continue Eliquis 5 mg p.o. b.i.d. Acute congestive heart failure with unknown ejection fraction Awaiting echo, NT proBNP 1162 Stopped fluids, held Lasix currently in view of ongoing inflammation Strict I&Os and daily weights. Hypokalemia Potassium 3.3, on hypokalemia/hypokalemia protocol. Comorbidities Hypertension -continue home medication metoprolol tartrate 25 mg p.o. b.i.d. History of DVT-continue home medication Eliquis 5 mg p.o. b.i.d. Dyslipidemia-continue home medication atorvastatin 40 mg p.o. daily BPH-continue home medication tamsulosin 0.4 mg p.o. daily Tobacco use disorder- patient educated to reduce and eventually quit smoking Code status: Full code DVT prophylaxis: Eliquis 5 mg p.o. b.i.d. Analgesia/sedation: Morphine/[place] Line/tube: PIV GI prophylaxis: None Nutrition: Heart healthy PT: Ordered. Prognosis: Guarded Disposition: Monitor vitals, continue medical management . Awaiting synovial fluid culture. Alla Orona MD PGY1, Internal Medicine [facility] Date of Service: Mar 01, 2025 Billing Provider: JUAN PABLO ANGEL MD Common Visit Codes: [id number] INP/OBS CARE(HIGH) ALLA ORONA, RES Mar 01, 2025 16:25 JUAN PABLO ANGEL MD Mar 02, 2025 07:52
[2025-03-01] MEDS: diltiazem CD 180mg cap (once-daily) PO SCH (16:30)
[2025-03-02] VITALS (12 sets, daily range): BP systolic 96–128; BP diastolic 55–80; PULSE 103–136; RESP 12–20; TEMP 97.2–97.6; O2SAT 95–98
[2025-03-02 07:20] LABS: MEAN PLATELET VOLUME 8.5 FL (7.4-10.4); RED CELL DISTRIBUTION WIDTH 13.5 % (11.5-14.5)
[2025-03-02 07:34] LABS: CREATININE 0.75 MG/DL (0.60-1.10); TOTAL CARBON DIOXIDE 25.0 MMOL/L (24-32); eCRCL 95 ML/MIN; eGFR > 90 ML/MIN
[2025-03-02] MEDS: diltiazem CD 120mg capsule (once-daily) PO SCH (08:03)
[2025-03-02] MEDS: magnesium hydroxide 30ml (MOM) UD suspension PO PRN (08:04)
[2025-03-02] MEDS: VANCOMYCIN LEVEL IV ONE (08:04)
[2025-03-02] MEDS ORDERED: magnesium Cl slow-release 64mg tablet PO PRN (08:50)
[2025-03-02] MEDS ORDERED: potassium Cl 20 mEq SR tablet PO PRN (08:50)
[2025-03-02] MEDS: CefTRIAXone 2gm/D5W 50ml BAG 50 ML IV SCH (09:15)
[2025-03-02] MEDS: potassium Cl 20 mEq SR tablet PO PRN (12:43)
--- NOTE | 2025-03-02 12:45 | PROGRESS NOTE- Residence ---
Progress Note - Resident Providers to CC Resident Creating Document: MAURA IRVINBENJAMIN Quesada, TIFFANY ~ Antibiotic Timeout Antibiotic Ordered?: Yes Subjective The patient has been evaluated at bedside. The patient reports some pain in the level of the right knee well controlled with pain medication. Objective Vital Signs Date Time Temp Pulse Resp B/P (MAP) Pulse Ox O2 Delivery O2 Flow Rate FiO2 03/02/25 11:00 97.5 104 20 109/71 (84) 96 Room Air 03/02/25 01:17 0.0 03/01/25 20:00 21 Physical exam: General: Awake, alert, oriented. No acute distress. Well-developed, hydrated and well-built nourished. No anemia, Jaundice or clubbing. HEENT: Conjunctive are pink, sclerae clear, no icterus, pupil is equal in both sides, reactive to light, no ear discharge, no pharyngeal erythema or an edema. Neck: Supple, no adenopathy, thyromegaly. Trachea is midline. No JVD. Chest: Respiratory: Vesicular breath sounds. No ronchi, crepitus or wheezing. Resonance is normal upon percussion of all lung pandey. Cardiovascular: S1-S2 irregular rhythm and rate, no gallops, no rubs, no murmurs Abdomen: No visible distention, Bowel sounds present on auscultation, on palpation: soft, nontender, no guarding, no rigidity. Extremities: No obvious deformities, no pitting edema bilaterally, capillary refill intact, peripheral pulsations are intact on both sides, presence of wound VAC at the level of the right knee. Neurologic: Mental status: alert and conscious, oriented to place, person and time, preserved memory, normal speech. Cranial nerves I-XII: Normal. Motor system: Preserved power, coordination, no evidenced involuntary movements, strength 5/5 in four extremities. Skin: Warm and dry. Result Diagram: 03/02/2561603/02/25616 Coagulation Studies Laboratory Tests Test 02/26/25 19:46 02/28/25 09:52 Activated Partial Thromboplast Time 31 SECONDS (22-32) Prothrombin Time 11.5 SECONDS (9.0-12.0) INR International Normalized Ratio 1.1 INR Coagulation Comments Assessment Assessment 74-year-old male patient presented to the hospital with chief complaint of right knee pain. Plan Plan Coexistent septic arthritis with pseudogout: The patient presented to the hospital with chief complaint of right knee pain which started suddenly. Initial right knee aspirate showed Streptococcus dysgalactiae equisimilis. The patient will require antibiotic therapy for four weeks with stop date on 03/28/2025 based on the procedure date. Recommendations: Ceftriaxone 2 g IV daily. The patient will require antibiotic therapy for four weeks-stop date on 03/28/2025. Patient will require PICC line. Other comorbidities: New AFib with RVR, CHF, hypokalemia, hypertension, H/O of DVT, dyslipidemia, BPH, tobacco use disorder: Appropriately managed by primary team. Resident MD attestation: Patient was seen, examined and discussed with the attending MD, Dr. yang. Benjamin Cevallos Internal Medicine Resident [facility] Date of Service: Mar 02, 2025 Billing Provider: KRISTIAN YANG DO Addendum Patient seen and examined with Dr. Maura Cevallos. Agree with the above assessment and plan. His GPC was identified as Strep dysgalactiae equisimilis today so antibiotics deescalated to Rocephin. Script also written for Rocephin so that they can be sent to [facility] and a share of cost assessed. He does have refrigeration in his camper is willing to come into town on a once a week basis for labs and PICC dressing changes. However, he is clear that he cannot afford a high share of cost so will see what he is quoted and then consider alternatives if needed BENJAMIN LUIS, RES Mar 02, 2025 12:45 KRISTIAN YANG DO Mar 02, 2025 22:43
[2025-03-02] MEDS: digoxin 250mcg/ml 2ml ampule IV ONE (13:53)
[2025-03-02] MEDS: metoprolol tartrate 1mg/ml inj IV ONE (15:43)
--- NOTE | 2025-03-02 17:47 | PROGRESS NOTE- Residence ---
Progress Note - Resident Providers to CC Resident Creating Document: ALLA ORONA, TIFFANY ~ Central Line/PICC still needed: N\A Potter-Non Protocol Potter Indications Met/Not Met: F/C Indications Not Met Antibiotic Timeout Antibiotic Ordered?: Yes Subjective Patient examined bedside. Postop day 2 arthroscopy with lavage and drain placement with Dr. Wheat. His swelling and pain of the knee has significantly. He continues to have AFib with RVR. The dosage of his medication diltiazem has been increased to 120 p.o. b.i.d. he worked with PT today. He had a heart rate of 200 after walking 15 ft. Heart rate continued to stay in 180s to 160s at rest per hour after walking. He is given digoxin 500 mcg and metoprolol 5 mg IV after which his heart rate is back to 110s. No complaints of palpitation, chest pain, dizziness, shortness of breath. Objective Vital Signs Date Time Temp Pulse Resp B/P (MAP) Pulse Ox O2 Delivery O2 Flow Rate FiO2 03/02/25 15:43 110 03/02/25 15:39 109/69 (82) 03/02/25 15:00 97.2 13 98 Room Air 03/02/25 01:17 0.0 03/01/25 20:00 21 Result Diagram: 03/02/25 0617 03/02/25 0617 General: Well alert, well oriented, not confused, not agitated, not in acute distress, well cooperated during the physical. HEENT: Malar rash on his face Conjunctive are pink, sclerae clear, no icterus, pupil is equal in both sides, reactive to light, no ear discharge, no pharyngeal erythema or an edema. Neck: Supple, no JVD, no lymphadenopathy and thyromegaly. Chest: Equal air entry on both lungs, no added sounds, no wheeze. Cardiovascular: S1-S2 irregular tachycardia no gallops, no rubs, no murmurs Abdomen: No visible peristalsis, Bowel sounds present on auscultation, soft, nontender, no guarding, no rigidity Extremities: Right knee, bandaged. Surgical site looks clean, no soakage of bandage. Drain present. Central Nervous System: No focal neurological deficits, no motor or sensory weakness in all 4 extremities, could move all 4 extremities, 2+ deep tendon reflexes, negative Babinski. Musculoskeletal: No joint swelling, deformities, inflammations, and no scoliosis and back tenderness Skin: Warm and dry. Coagulation Studies Laboratory Tests Test 02/26/25 19:46 02/28/25 09:52 Activated Partial Thromboplast Time 31 SECONDS (22-32) Prothrombin Time 11.5 SECONDS (9.0-12.0) INR International Normalized Ratio 1.1 INR Coagulation Comments Counseling Services Smoking & Tobacco Cessation: N/A Advance Care Planning Advanced Care planning: N/A Assessment Assessment This is a 74-year-old man with past medical history of hypertension, DVT, mechanical fall and traumatic head injury with 1 episode of seizure, alcohol use disorder sober since 6 years, who came to the hospital with complaints of swelling and pain in his right knee, unable to bear weight. Synovial fluid grew strep dysgalactiae sensitive to ampicillin. He is currently on ceftriaxone. ID consulted recommended intravenous ceftriaxone 2 mg till 03/28/2025. Postop day 2 arthroscopy with lavage and drain placement with Dr. Wheat. AFib with RVR poorly controlled with diltiazem. Heart rate goes up to 200 even while walking a short distance. Plan Plan Sepsis due to septic arthritis Septic arthritis possibly due to pseudogout -sepsis criteria met with tachycardia, leukocytosis, suspected source of infection -vitals: AFib with RVR -WBC and inflammatory markers downtrending -synovial fluid culture grew strep dysgalactiae sensitive to ampicillin, ID consulted recommended IV ceftriaxone 2 mg daily till 03/2025 -postop day 2 arthroscopy with lavage and drain placement. New onset AFib with RVR Hypertension Yonis Vasc score 4 AFib most likely due to sepsis , TSH normal The dosage of his medication diltiazem has been increased to 120 p.o. b.i.d. he worked with PT today. He had a heart rate of 200 after walking 15 ft. Heart rate continued to stay in 180s to 160s at rest per hour after walking. He is given digoxin 500 mcg and metoprolol 5 mg IV after which his heart rate is back to 110s. Acute congestive heart failure with unknown ejection fraction Echo essentially normal with ejection fraction of 70%. NT proBNP 1162 Stopped fluids, held Lasix currently in view of ongoing inflammation Strict I&Os and daily weights. Hypokalemia Potassium 3.3, on hypokalemia/hypokalemia protocol. Comorbidities History of DVT-continue home medication Eliquis 5 mg p.o. b.i.d. Dyslipidemia-continue home medication atorvastatin 40 mg p.o. daily BPH-continue home medication tamsulosin 0.4 mg p.o. daily Tobacco use disorder- patient educated to reduce and eventually quit smoking Code status: Full code DVT prophylaxis: Eliquis 5 mg p.o. b.i.d. Analgesia/sedation: Morphine/[place] Line/tube: PIV GI prophylaxis: None Nutrition: Heart healthy PT: Ordered. Prognosis: Guarded Disposition: Monitor vitals, continue medical management . Awaiting synovial fluid culture. Alla Orona MD PGY1, Internal Medicine [facility] Date of Service: Mar 02, 2025 Billing Provider: JUAN PABLO ANGEL MD Common Visit Codes: [id number] INP/OBS CARE(HIGH) ALLA ORONA, RES Mar 02, 2025 17:46 JUAN PABLO ANGEL MD Mar 03, 2025 07:30
[2025-03-02] MEDS: Ensure Enlive - 237ML PO SCH (18:03)
[2025-03-03] VITALS (9 sets, daily range): BP systolic 94–121; BP diastolic 57–77; PULSE 86–131; RESP 14–25; TEMP 97.3–97.9; O2SAT 95–96
[2025-03-03 07:11] LABS: MEAN PLATELET VOLUME 8.8 FL (7.4-10.4); RED CELL DISTRIBUTION WIDTH 13.5 % (11.5-14.5)
[2025-03-03 07:47] LABS: CREATININE 0.74 MG/DL (0.60-1.10); TOTAL CARBON DIOXIDE 25.2 MMOL/L (24-32); eCRCL 96 ML/MIN; eGFR > 90 ML/MIN
[2025-03-03] MEDS: metoprolol succinate 25mg (24-HOUR) SR. Tablet PO SCH (08:45)
--- NOTE | 2025-03-03 12:23 | PROGRESS NOTE- Residence ---
Progress Note - Resident Providers to CC Resident Creating Document: RENE IRVINBENJAMIN Quesada, TIFFANY ~ Antibiotic Timeout Antibiotic Ordered?: Yes Subjective Patient has been evaluated at the bedside. The patient reports mild pain in the of the right knee well controlled with acetaminophen. Objective Vital Signs Date Time Temp Pulse Resp B/P (MAP) Pulse Ox O2 Delivery O2 Flow Rate FiO2 03/03/25 11:00 97.9 119 25 121/69 (86) 95 Room Air 03/03/25 08:00 0.0 21 Physical exam: General: Awake, alert, oriented. No acute distress. Well-developed, hydrated and well-built nourished. No anemia, Jaundice or clubbing. HEENT: Conjunctive are pink, sclerae clear, no icterus, pupil is equal in both sides, reactive to light, no ear discharge, no pharyngeal erythema or an edema. Neck: Supple, no adenopathy, thyromegaly. Trachea is midline. No JVD. Chest: Respiratory: Vesicular breath sounds. No ronchi, crepitus or wheezing. Resonance is normal upon percussion of all lung pandey. Cardiovascular: S1-S2 irregular rhythm and rate, no gallops, no rubs, no murmurs Abdomen: No visible distention, Bowel sounds present on auscultation, on palpation: soft, nontender, no guarding, no rigidity. Extremities: No obvious deformities, no pitting edema bilaterally, capillary refill intact, peripheral pulsations are intact on both sides, presence of clean dressing in the right. Neurologic: Mental status: alert and conscious, oriented to place, person and time, preserved memory, normal speech. Cranial nerves I-XII: Normal. Motor system: Preserved power, coordination, no evidenced involuntary movements, strength 5/5 in four extremities. Skin: Warm and dry. Result Diagram: 03/03/25 0616 03/03/25 0616 Coagulation Studies Laboratory Tests Test 02/26/25 19:46 02/28/25 09:52 Activated Partial Thromboplast Time 31 SECONDS (22-32) Prothrombin Time 11.5 SECONDS (9.0-12.0) INR International Normalized Ratio 1.1 INR Coagulation Comments Assessment Assessment 74-year-old male patient presented to the hospital with chief complaint of right knee pain. Plan Plan Coexistent septic arthritis with pseudogout: The patient presented to the hospital with chief complaint of right knee pain which started suddenly. Initial right knee aspirate showed Streptococcus dysgalactiae equisimilis. The patient will require antibiotic therapy for four weeks with stop date on 03/28/2025 based on the procedure date. Initially IV antibiotics was considered but regarding affordability of the patient, oral medication will be appropriate. Recommendations: We will discontinue ceftriaxone. Linezolid 600 b.i.d. p.o. to be completed for four weeks stop date on 03/28/2025. Other comorbidities: New AFib with RVR, CHF, hypokalemia, hypertension, H/O of DVT, dyslipidemia, BPH, tobacco use disorder: Appropriately managed by primary team. Resident MD attestation: Patient was seen, examined and discussed with the attending MD, Dr. Angeles. Benjamin Cevallos Internal Medicine Resident [facility] Date of Service: Mar 03, 2025 Billing Provider: RAH ANGELES MD Addendum Agree with above note. Patient seen and examined with Dr. Cevallos. He apparently has a high share of cost for outpatient IV antibiotics. He also has a penicillin allergy. We will move forward with oral linezolid for four weeks. He will need appropriate follow up with some CBC monitoring. BENJAMIN LUIS, RES Mar 03, 2025 12:23 RAH ANGELES MD Mar 03, 2025 17:11
--- NOTE | 2025-03-03 12:25 | RADIOLOGY REPORT ---
EXAM: DI CHEST,SINGLE VIEW Indication: RIGHT PICC PLACEMENT VERIFICATION Technique: Single frontal view of the chest was obtained Comparison: DI CHEST,SINGLE VIEW on DOS: 02/28/25 FINDINGS: Lines and Tubes: Right PICC tip projects over the cavoatrial junction. Lungs: No focal consolidation. Pleura: No effusion. No pneumothorax. Cardiomediastinal contours: Unremarkable Bones: No acute osseous abnormality. Chronic right rib fractures. IMPRESSION: Right PICC tip projects over the cavoatrial junction.
[2025-03-03] MEDS ORDERED: LINE600T14 PO (12:33)
[2025-03-03] MEDS ORDERED: magnesium hydroxide 30ml (MOM) UD suspension PO PRN (13:20)
[2025-03-03] MEDS: polyethylene glycol 3350 17gm powd pack PO ONE (17:43)
--- NOTE | 2025-03-03 18:18 | PROGRESS NOTE- Residence ---
Progress Note - Resident Providers to CC Resident Creating Document: ALLA ORONA RES ~ Central Line/PICC still needed: N\A Potter-Non Protocol Potter Indications Met/Not Met: F/C Indications Not Met Antibiotic Timeout Antibiotic Ordered?: Yes MRSA Education MRSA Education Provided to pt: Yes Subjective Patient examined bedside. Postop day 3 arthroscopy with lavage and drain placement with Dr. Wheat. His swelling and pain of the knee has significantly. Pain well controlled with acetaminophen. He continues to have AFib with RVR. Currently on diltiazem 120 mg p.o. b.i.d. with metoprolol 25 mg p.o. daily. He had a heart rate of 150 today while working with PT after walking 20 ft. No complaints of palpitation, chest pain, dizziness, shortness of breath. Objective Vital Signs Date Time Temp Pulse Resp B/P (MAP) Pulse Ox O2 Delivery O2 Flow Rate FiO2 03/03/25 15:00 97.7 106 17 102/67 (79) 95 Room Air 03/03/25 08:00 0.0 21 Result Diagram: 03/03/25 0616 03/03/25 0616 General: Well alert, well oriented, not confused, not agitated, not in acute distress, well cooperated during the physical. HEENT: Rash on bilateral cheek. Conjunctive are pink, sclerae clear, no icterus, pupil is equal in both sides, reactive to light, no ear discharge, no pharyngeal erythema or an edema. Neck: Supple, no JVD, no lymphadenopathy and thyromegaly. Chest: Equal air entry on both lungs, no added sounds, no wheeze. Cardiovascular: S1-S2 irregular tachycardia no gallops, no rubs, no murmurs Abdomen: No visible peristalsis, Bowel sounds present on auscultation, soft, nontender, no guarding, no rigidity Extremities: Right knee, bandaged. Surgical site looks clean, no soakage of bandage. Drain present. Central Nervous System: No focal neurological deficits, no motor or sensory weakness in all 4 extremities, could move all 4 extremities, 2+ deep tendon reflexes, negative Babinski. Musculoskeletal: No joint swelling, deformities, inflammations, and no scoliosis and back tenderness Skin: Warm and dry. Coagulation Studies Laboratory Tests Test 02/26/25 19:46 02/28/25 09:52 Activated Partial Thromboplast Time 31 SECONDS (22-32) Prothrombin Time 11.5 SECONDS (9.0-12.0) INR International Normalized Ratio 1.1 INR Coagulation Comments Counseling Services Smoking & Tobacco Cessation: N/A Advance Care Planning Advanced Care planning: N/A Plan Plan Assessment This is a 74-year-old man with past medical history of hypertension, DVT, mechanical fall and traumatic head injury with 1 episode of seizure, alcohol use disorder sober since 6 years, who came to the hospital with complaints of swelling and pain in his right knee, unable to bear weight. Synovial fluid grew strep dysgalactiae sensitive to ampicillin. He is currently on ceftriaxone. ID changed his antibiotic to linezolid 600 mg p.o. b.i.d. till 03/28/2025. Postop day 3 arthroscopy with lavage and drain placement with Dr. Wheat. AFib with RVR. Plan Plan Sepsis due to septic arthritis-resolving Septic arthritis possibly due to pseudogout -currently does not meet sepsis criteria. -vitals: AFib with RVR, soft blood pressure -resolving leukocytosis - ID changed his antibiotic to linezolid 600 mg p.o. b.i.d. till 03/28/2025. PICC line not need anymore. -postop day 3 arthroscopy with lavage and drain placement. New onset AFib with RVR Hypertension Yonis Vasc score 4 AFib most likely due to sepsis , TSH normal Current medication includes diltiazem 120 mg p.o. b.i.d., metoprolol 25 mg p.o. daily. Heart rate goes up to 160s when he walks with PT for 20 ft Acute congestive heart failure with unknown ejection fraction Echo shows ejection fraction of 70% with dilated left atrium. NT proBNP 1162 Stopped fluids, held Lasix currently in view of ongoing inflammation Strict I&Os Hypokalemia -resolved Potassium 4.1, on hypokalemia/hypokalemia protocol. Comorbidities History of DVT-continue home medication Eliquis 5 mg p.o. b.i.d. Dyslipidemia-continue home medication atorvastatin 40 mg p.o. daily BPH-continue home medication tamsulosin 0.4 mg p.o. daily Tobacco use disorder- patient educated to reduce and eventually quit smoking Code status: Full code DVT prophylaxis: Eliquis 5 mg p.o. b.i.d. Analgesia/sedation: Morphine/[place] Line/tube: PIV GI prophylaxis: None Nutrition: Heart healthy PT: Discharge with barriers. Prognosis: Guarded Disposition: On oral medication linezolid 600 mg p.o. b.i.d. till 03/28/2025 Alla Orona MD PGY1, Internal Medicine [facility] Date of Service: Mar 03, 2025 Billing Provider: JUAN PABLO ANGEL MD Common Visit Codes: 93217-FDB/[id number] DISCH DAY >30min ALLA ORONA, RES Mar 03, 2025 18:18 JUAN PABLO ANGEL MD Mar 04, 2025 06:51
[2025-03-03] MEDS: mag hydrox/Alum hydrox/simeth 30ml oral suspension PO PRN (19:36)
[2025-03-03] MEDS: digoxin 250mcg/ml 2ml ampule IV ONE (19:37)
[2025-03-04] VITALS (8 sets, daily range): BP systolic 97–116; BP diastolic 57–67; PULSE 82–115; RESP 14–21; TEMP 97.3–98.1; O2SAT 96–97
[2025-03-04] MEDS: digoxin 250mcg/ml 2ml ampule IV ONE ×2 (01:04→08:04)
[2025-03-04 06:06] LABS: MEAN PLATELET VOLUME 8.7 FL (7.4-10.4); RED CELL DISTRIBUTION WIDTH 13.9 % (11.5-14.5)
[2025-03-04 06:10] LABS: CREATININE 0.66 MG/DL (0.60-1.10); TOTAL CARBON DIOXIDE 28.5 MMOL/L (24-32); eCRCL 108 ML/MIN; eGFR > 90 ML/MIN
--- NOTE | 2025-03-04 12:07 | PROGRESS NOTE- Residence ---
Progress Note - Resident Providers to CC Resident Creating Document: DILAN LUIS, RES ~ Antibiotic Timeout Antibiotic Ordered?: Yes Subjective Patient has been evaluated the bedside. The patient currently denies any pain, doing well with physical therapy. Objective Vital Signs Date Time Temp Pulse Resp B/P (MAP) Pulse Ox O2 Delivery O2 Flow Rate FiO2 03/04/25 08:04 88 03/04/25 08:00 14 96 Room Air 03/04/25 06:00 97.3 108/67 (81) 03/03/25 08:00 0.0 21 Physical exam: General: Awake, alert, oriented. No acute distress. Well-developed, hydrated and well-built nourished. No anemia, Jaundice or clubbing. HEENT: Conjunctive are pink, sclerae clear, no icterus, pupil is equal in both sides, reactive to light, no ear discharge, no pharyngeal erythema or an edema. Neck: Supple, no adenopathy, thyromegaly. Trachea is midline. No JVD. Chest: Respiratory: Vesicular breath sounds. No ronchi, crepitus or wheezing. Resonance is normal upon percussion of all lung pandey. Cardiovascular: S1-S2 irregular rhythm and rate, no gallops, no rubs, no murmurs Abdomen: No visible distention, Bowel sounds present on auscultation, on palpation: soft, nontender, no guarding, no rigidity. Extremities: No obvious deformities, no pitting edema bilaterally, capillary refill intact, peripheral pulsations are intact on both sides, presence of clean dressing in the right. Neurologic: Mental status: alert and conscious, oriented to place, person and time, preserved memory, normal speech. Cranial nerves I-XII: Normal. Motor system: Preserved power, coordination, no evidenced involuntary movements, strength 5/5 in four extremities. Skin: Warm and dry. Result Diagram: 03/04/25 0510 03/04/25 0510 Coagulation Studies Laboratory Tests Test 02/26/25 19:46 02/28/25 09:52 Activated Partial Thromboplast Time 31 SECONDS (22-32) Prothrombin Time 11.5 SECONDS (9.0-12.0) INR International Normalized Ratio 1.1 INR Coagulation Comments Assessment Assessment 74-year-old male patient presented to the hospital with chief complaint of right knee pain. Plan Plan Coexistent septic arthritis with pseudogout: The patient presented to the hospital with chief complaint of right knee pain which started suddenly. Initial right knee aspirate showed Streptococcus dysgalactiae equisimilis. Plan for antibiotic therapy based on linezolid for four weeks with stop date on 03/28/2025 based on the procedure date. Initially IV antibiotics was considered but regarding affordability of the patient and penicillin allergy, oral medication based on linezolid will be appropriate. Recommendations: Linezolid 600 b.i.d. p.o. to be completed for four weeks stop date on 03/28/2025. Patient will need to follow-up with Dr. Angeles within two weeks for CBC monitoring. We will sign off at this time, please feel free to reach out with any questions or concerns. Other comorbidities: New AFib with RVR, CHF, hypokalemia, hypertension, H/O of DVT, dyslipidemia, BPH, tobacco use disorder: Appropriately managed by primary team. Resident MD attestation: Patient was seen, examined and discussed with the attending MD, Dr. Angeles. Dilan Cevallos Internal Medicine Resident [facility] Date of Service: Mar 04, 2025 Billing Provider: RAH ANGELES MD Addendum Agree with above note. Patient seen and examined with Dr. Cevallos. Hopefully home with oral linezolid soon. F/U me in clinic. DILAN LUIS, RES Mar 04, 2025 12:07 RAH ANGELES MD Mar 04, 2025 20:51
--- NOTE | 2025-03-04 17:52 | PROGRESS NOTE- Residence ---
Progress Note - Resident Providers to CC Resident Creating Document: ALLA ORONA RES ~ Central Line/PICC still needed: N\A Potter-Non Protocol Potter Indications Met/Not Met: F/C Indications Not Met Antibiotic Timeout Antibiotic Ordered?: Yes Subjective Patient has been evaluated the bedside. The patient currently denies any pain, doing well with physical therapy. Objective Vital Signs Date Time Temp Pulse Resp B/P (MAP) Pulse Ox O2 Delivery O2 Flow Rate FiO2 03/04/25 15:00 97.3 115 16 100/67 (78) 96 Room Air 03/03/25 08:00 0.0 21 Result Diagram: 03/04/25 0510 03/04/25 0510 General: Well alert, well oriented, not confused, not agitated, not in acute distress, well cooperated during the physical. HEENT: Rash on bilateral cheek. Conjunctive are pink, sclerae clear, no icterus, pupil is equal in both sides, reactive to light, no ear discharge, no pharyngeal erythema or an edema. Neck: Supple, no JVD, no lymphadenopathy and thyromegaly. Chest: Equal air entry on both lungs, no added sounds, no wheeze. Cardiovascular: S1-S2 irregular tachycardia no gallops, no rubs, no murmurs Abdomen: No visible peristalsis, Bowel sounds present on auscultation, soft, nontender, no guarding, no rigidity Extremities: Right knee, bandaged. Surgical site looks clean, no soakage of bandage. Drain present. Central Nervous System: No focal neurological deficits, no motor or sensory weakness in all 4 extremities, could move all 4 extremities, 2+ deep tendon reflexes, negative Babinski. Musculoskeletal: No joint swelling, deformities, inflammations, and no scoliosis and back tenderness Skin: Warm and dry. Coagulation Studies Laboratory Tests Test 02/26/25 19:46 02/28/25 09:52 Activated Partial Thromboplast Time 31 SECONDS (22-32) Prothrombin Time 11.5 SECONDS (9.0-12.0) INR International Normalized Ratio 1.1 INR Coagulation Comments Assessment Assessment This is a 74-year-old man with past medical history of hypertension, DVT, mechanical fall and traumatic head injury with 1 episode of seizure, alcohol use disorder sober since 6 years, who came to the hospital with complaints of swelling and pain in his right knee, unable to bear weight. Synovial fluid grew strep dysgalactiae sensitive to ampicillin. He is currently on ceftriaxone. ID changed his antibiotic to linezolid 600 mg p.o. b.i.d. till 03/28/2025. Postop day 4 arthroscopy with lavage and drain placement with Dr. Wheat. AFib with RVR. Currently controlled with metoprolol, digoxin, diltiazem. Plan Plan Sepsis due to septic arthritis-resolving Septic arthritis possibly due to pseudogout -currently does not meet sepsis criteria. -vitals: AFib with RVR, soft blood pressure -resolving leukocytosis - ID changed his antibiotic to linezolid 600 mg p.o. b.i.d. till 03/28/2025. -postop day 4 arthroscopy with lavage and drain placement. New onset AFib with RVR Hypertension Yonis Vasc score 4 AFib most likely due to sepsis , TSH normal Patient completed digoxin loading dose overnight. Currently on digoxin 250 mcg p.o. daily along with metoprolol 25 mg extended release, diltiazem 120 mg b.i.d.. Heart rate was in 110s when he worked with PT today. Acute congestive heart failure with unknown ejection fraction Echo shows ejection fraction of 70% with dilated left atrium. NT proBNP 1162 Stopped fluids, held Lasix currently in view of ongoing inflammation Strict I&Os Comorbidities History of DVT-continue home medication Eliquis 5 mg p.o. b.i.d. Dyslipidemia-continue home medication atorvastatin 40 mg p.o. daily BPH-continue home medication tamsulosin 0.4 mg p.o. daily Tobacco use disorder- patient educated to reduce and eventually quit smoking Code status: Full code DVT prophylaxis: Eliquis 5 mg p.o. b.i.d. Analgesia/sedation: Morphine/[place] Line/tube: PIV GI prophylaxis: None Nutrition: Heart healthy PT: Discharge with barriers. Prognosis: Guarded Disposition: On oral medication linezolid 600 mg p.o. b.i.d. till 03/28/2025 Alla Orona MD PGY1, Internal Medicine PSYCHIATRIC Date of Service: Mar 04, 2025 Billing Provider: JUAN PABLO ANGEL MD Common Visit Codes: [id number] INP/OBS CARE(HIGH) ALLA ORONA, RES Mar 04, 2025 17:52 JUAN PABLO ANGEL MD Mar 05, 2025 06:52
[2025-03-04] MEDS: digoxin 250mcg (0.25mg) tablet PO ONE (20:15)
[2025-03-05 02:00] VITALS: BP 91/48; PULSE 83; RESP 23; TEMP 97.1; O2SAT 97
[2025-03-05 06:00] VITALS: BP 116/67; PULSE 76; RESP 14; TEMP 97.2; O2SAT 97
[2025-03-05] MEDS: digoxin 250mcg (0.25mg) tablet PO SCH (07:19)
[2025-03-05 08:00] VITALS: RESP 14; O2SAT 96
[2025-03-05 11:00] VITALS: BP 104/65; PULSE 77; RESP 21; TEMP 97; O2SAT 98
[2025-03-05] MEDS ORDERED: CARCD120C PO (11:06)
[2025-03-05] MEDS ORDERED: DIGO250T4 PO (11:06)
[2025-03-05] MEDS ORDERED: METO-395 PO (11:10)
[2025-03-05 11:38] LABS: MEAN PLATELET VOLUME 8.3 FL (7.4-10.4); RED CELL DISTRIBUTION WIDTH 13.4 % (11.5-14.5)
[2025-03-05 11:58] LABS: CREATININE 0.73 MG/DL (0.60-1.10); TOTAL CARBON DIOXIDE 27.2 MMOL/L (24-32); eCRCL 97 ML/MIN; eGFR > 90 ML/MIN
--- NOTE | 2025-03-05 21:49 | DISCHARGE SUMMARY-Residence ---
Discharge Summary Providers to CC Resident Creating Document: MARIAJOSE MERLOS, RES ~ Discharge Summary Admission Diagnosis: Knee pain Hospital Course DATE OF ADMISSION: 02/26/2025 DATE OF DISCHARGE: 03/05/2025 Discharge Diagnosis\Comment: Sepsis due to septic arthritis New onset AFib with RVR Acute congestive heart failure with unknown ejection fraction Operations\Procedures: ARTHROSCOPY Consultants: INFECTIOUS DISEASE DR. WHEAT Complications: NONE Condition on DC: Stable New Medications: Linezolid (Linezolid) 600 Mg Tablet 1 TAB PO Q12H for 25 Days, #50 TAB 0 Refills Digoxin (LANOXIN tablet) 250 Mcg (0.25 Mg) Tablet 250 MCG PO DAILY for 30 Days, #30 TAB Diltiazem HCl (Dilt-Xr) 120 Mg Capsule.cr 120 MG PO BID for 30 Days, #60 CAP.SR Metoprolol Succinate (Metoprolol Succinate) 25 Mg Tab.sr.24h 25 MG PO DAILY for 30 Days, #30 TAB.SR Continued Medications: Acetaminophen (Acetaminophen ER) 650 Mg Tablet.er 1 TAB PO Q8H for 21 Days, #63 TAB 0 Refills Apixaban (Eliquis) 5 Mg Tablet 1 TAB PO BID Atorvastatin Calcium (Atorvastatin Calcium) 40 Mg Tablet 1 TAB PO DAILY for cholesterol Fluticasone Propionate (Fluticasone Propionate) 50 Mcg/Actuation [place].susp 1 SPRAYS BOTHNARES DAILY Melatonin (Melatonin) 3 Mg Capsule 1 CAP PO HS for 30 Days, #30 CAP 0 Refills Tamsulosin Hcl* (Flomax*) 0.4 Mg Cap.sr.24h 0.4 MG PO DAILY Turmeric/Turmeric Root Extract (Turmeric 500 mg Capsule) 450 Mg-50 Mg Capsule 1 CAP PO Q12H for 30 Days, #60 CAP 0 Refills Discontinued Medications: Metoprolol Tartrate (Metoprolol Tartrate) 25 Mg Tablet 1 TAB PO BID Tamsulosin Hcl* (Flomax*) 0.4 Mg Cap.sr.24h Discharge Summary: HISTORY OF PRESENT ILLNESS This is a 74 year old male with past medical history of hypertension, knee replacement surgery presents to the ED with complaints of right knee pain. 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 He says that It started all of a sudden, with associated swelling. He rated the pain as 9/10 in intensity initially and was unable to bear weight on his right leg with the pain. Patient denies fevers, chills nausea vomiting diarrhea at this time but does report progressive severe pain in the right knee. Patient denies injuring his knee today and never had similar complaint in the past . However on examination there was a laceration present on the right leg and patient says that he scraped his leg last week when he was walking. HOSPITAL COURSE This is a 74-year-old man with past medical history of hypertension, DVT, mechanical fall and traumatic head injury with 1 episode of seizure, alcohol use disorder sober since 6 years, who came to the hospital with complaints of sw elling and pain in his right knee, unable to bear weight. We consulted Dr. Wheat arthroscopic for drainage and culture later culture we initially started the patient on ceftriaxone and after culture shows strep dysgalactiae sensitive to anterior ampicillin and ID doctor who are on board recommended continuation linezolid 600 mg p.o. b.i.d. till 03/28/2025. Additionally patient developed new onset of AFib likely due to underlying infection and we initially started on rate control agents but but later rate and rhythm was controlled by d Cardizem 120 mg p.o. b.i.d., metoprolol 25 mg and digoxin 250 mg. Today patient reports improvement in his symptoms and he is heart rate is in control and PT evaluated the patient and patient recovered and he is fit for discharge Vital Signs Date Time Temp Pulse Resp B/P (MAP) Pulse Ox O2 Delivery O2 Flow Rate FiO2 03/05/25 11:00 97.0 77 21 104/65 (78) 98 Room Air 03/03/25 08:00 0.0 21 Laboratory Tests Test 03/04/25 05:10 03/05/25 10:26 White Blood Count 9.5 X10'3 11.5 X10'3 Red Blood Count 4.13 X10'6 4.14 X10'6 Hemoglobin 12.9 g/dl 12.4 g/dl Hematocrit 36.9 % 36.7 % Mean Corpuscular Volume 89.3 FL 88.8 FL Mean Corpuscular Hemoglobin 31.2 PG 30.0 PG Mean Corpuscular Hemoglobin Concent 35.0 g/dL 33.8 g/dL Red Cell Distribution Width 13.9 % 13.4 % Platelet Count 317 X10'3 387 X10'3 Mean Platelet Volume 8.7 FL 8.3 FL Neutrophils (%) (Auto) 74.0 % 77.1 % Lymphocytes (%) (Auto) 13.1 % 11.5 % Monocytes (%) (Auto) 10.1 % 8.6 % Eosinophils (%) (Auto) 2.0 % 2.1 % Basophils (%) (Auto) 0.8 % 0.7 % Neutrophils # (Auto) 7.0 X10'3 8.8 X10'3 Lymphocytes # (Auto) 1.2 X10'3 1.3 X10'3 Monocytes # (Auto) 1.0 X10'3 1.0 X10'3 Eosinophils # (Auto) 0.2 X10'3 0.2 X10'3 Basophils # (Auto) 0.1 X10'3 0.1 X10'3 CBC Comment Sodium Level 140 MMOL/L 140 MMOL/L Potassium Level 4.0 MMOL/L 3.9 MMOL/L Chloride Level 108 MMOL/L 107 MMOL/L Carbon Dioxide Level 28.5 MMOL/L 27.2 MMOL/L Anion Gap 4 6 Blood Urea Nitrogen 9 MG/DL 9 MG/DL Creatinine 0.66 MG/DL 0.73 MG/DL Estimated GFR/1.73 m2 > 90 ML/MIN > 90 ML/MIN BUN/Creatinine Ratio 13.6 12.3 Glucose Level 100 MG/DL 114 MG/DL Calcium Level 8.2 MG/DL 8.1 MG/DL Magnesium Level 2.1 MG/DL Total Bilirubin 0.8 MG/DL 0.5 MG/DL Aspartate Amino Transf (AST/SGOT) 26 U/L 25 U/L Alanine Aminotransferase (ALT/SGPT) 59 U/L 47 U/L Alkaline Phosphatase 67 IU/L 71 IU/L Total Protein 6.6 G/DL 6.6 G/DL Albumin 2.7 G/DL 2.6 G/DL Globulin 3.9 G/DL 4.0 G/DL Albumin/Globulin Ratio 0.7 0.7 Chemistry Comments Physical examination General: Well alert, well oriented, not confused, not agitated, not in acute distress, well cooperated during the physical. HEENT: Mild Redness over the cheeks. Conjunctive are pink, sclerae clear, no icterus, pupil is equal in both sides, reactive to light, no ear discharge, no pharyngeal erythema or an edema. Neck: Supple, no JVD, no lymphadenopathy and thyromegaly. Chest: Equal air entry on both lungs, no added sounds, no wheeze. Cardiovascular: Normal S1-S2 no gallops, no rubs, no murmurs Abdomen: No visible peristalsis, Bowel sounds present on auscultation, soft, nontender, no guarding, no rigidity Extremities: Right knee, bandaged. Surgical site looks clean, no soakage of bandage. Drain present. Central Nervous System: No focal neurological deficits, no motor or sensory weakness in all 4 extremities, could move all 4 extremities, 2+ deep tendon reflexes, negative Babinski. Musculoskeletal: No joint swelling, deformities, inflammations, and no scoliosis and back tenderness Skin: Warm and dry. Imaging at hospital Knee x-ray-Small knee joint effusion. Soft tissue ultrasound-Fluid superior to the patella likely within the suprapatellar bursa Lower extremity CT-Moderate effusion is seen in the suprapatellar recess Chest x-ray-Heart appears normal in size. The lungs appear clear without focal airspace opacity, effusion, or pneumothorax. Multiple right rib fractures posteriorly which appear age-indeterminate. Correlation with clinical history and findings is recommended. Chest x-ray-Right PICC tip projects over the cavoatrial junction. DISCHARGE MEDICATIONS AND INSTRUCTIONS New Medications: Linezolid 600 Mg Tablet Digoxin (LANOXIN tablet) 250 Mcg (0.25 Mg) Tablet Diltiazem HCl (Dilt-Xr) 120 Mg Capsule.cr Metoprolol Succinate 25 Mg Tab.sr.24h Follow up with PCP, ID, Cardiology in a week Continue Linazolid 600 mg po BID for 25 days Continue eliquis 5mg po BID, Metoprolol 25mg Extended release po daily and Diltazem 120 mg po BID. We are also sending you on digoxin to control your heart rate. You need to closely follow u with your PCP and obtain frequent labs to check your electrolytes. If you develop, dizziness, palpitations, muscle cramps or changes in vision that are new; kindly come back to ER immediately. If you have recurrnet nausea r vomiting, that will also impact the medications you take. You will have to repeat her labs including cbc and cmp immediately. Call 911 or come to Ed if severe chest pain, Shortness of breath and severe dizziness develops *Problems/Diagnosis: (1) Septic arthritis (2) New onset a-fib Total Time Spent on D/C: Up to 30 Minutes Date of Service: Mar 05, 2025 Billing Provider: JUAN PABLO ANGEL MD Common Visit Codes: [id number]/OBS DISCH DAY >30min MARIAJOSE MERLOS, RES Mar 05, 2025 21:48 JUAN PABLO ANGEL MD Mar 06, 2025 08:47
== END 2025-03-05 13:54 | disposition home or self-care (01) | DRG 871 ==
LOC: ER 15:45 → ED HOLD 19:51 → PCU 3S 23:50
PROVIDERS: ADMIT Internal Medicine; ATTEND Internal Medicine
PROC: 0S9D40Z Drainage of Left Knee Joint with Drainage Device, Percutaneous Endoscopic Approach (ICD-10-PCS; principal; 2025-02-28 10:37)
PROC: 02HV33Z Insertion of Infusion Device into Superior Vena Cava, Percutaneous Approach (ICD-10-PCS; 2025-03-03)
DX: A41.9 Sepsis, unspecified organism (principal); I50.33 Acute on chronic diastolic (congestive) heart failure; I11.0 Hypertensive heart disease with heart failure; M00.861 Arthritis due to other bacteria, right knee; E87.6 Hypokalemia; I48.91 Unspecified atrial fibrillation; Z88.0 Allergy status to penicillin; Z88.5 Allergy status to narcotic agent
CPT/HCPCS: 36415; 36569; 71045; 73564; 73701; 76882; 76942; 80053; 80061; 80202; 80320; 81001; 82948; 83036; 83605; 83735; 83880; 84145; 84443; 85025; 85610; 85651; 85730; 86140; 87040; 87070; 87075; 87077; 87081; 87102; 87186; 89051; 89060; 93005; 93306; 97110; 97116; 97162; 97530; 99285; A4215; A4618; A6258; A6449; A7000; C1751; G0378; J0131; J0282; J0696; J1100; J1160; J2003; J2250; J2270; J2405; J2704; J2795; J3010; J3373; J3375; J3490; J7030; J7040; J7120; Q9967

== ENCOUNTER 2025-03-12 11:02 | Emergency (ER) | payer MEDICARE ==
[~2025-03-12] VITALS: Ht 181.6 cm; Wt 87.3 kg
[~2025-03-12 11:02] MED LIST: ACET-3669 PO; APIX5TAB3 PO; ATOR40TA72 PO; CARCD120C PO; DIGO250T4 PO; FLUT16SP26 BOTHNARES; LINE600T14 PO; MELA3CAP2 PO; METO-395 PO; TAMS-55 PO; TURM500C4 PO
[2025-03-12 11:18] VITALS: TEMP 97.6
[2025-03-12 11:41] LABS: MEAN PLATELET VOLUME 7.1 FL (7.4-10.4); RED CELL DISTRIBUTION WIDTH 13.5 % (11.5-14.5)
[2025-03-12 11:57] LABS: CREATININE 0.80 MG/DL (0.60-1.10); TOTAL CARBON DIOXIDE 28.3 MMOL/L (24-32); eCRCL 90 ML/MIN; eGFR > 90 ML/MIN
--- NOTE | 2025-03-12 12:47 | VASCULAR REPORT ---
CLINICAL HISTORY: Edema TECHNIQUE: Grayscale, color, and spectral Doppler images of the right lower extremity vessels including the common femoral vein, saphenofemoral junction, femoral vein, popliteal vein, and tibial veins.. Vessel compression if possible was also performed. WID: COMPARISON: None FINDINGS: There is normal compressibility, waveforms, and augmentation within the common femoral vein, femoral vein, popliteal vein, tibial veins, and greater saphenous vein. IMPRESSION: No evidence of deep vein thrombus within the right lower extremity
--- NOTE | 2025-03-12 13:45 | Physician Documentation ---
History of Present Illness ~ Chief Complaint: Extremity Swelling Stated Complaint: LEG SWELLING Time Seen by MD: 11:26 Primary Medical Doctor: scooter churchill Mode of Arrival: POV HPI Patient is a very pleasant 74-year-old male that presents to the emergency department for evaluation of swelling to the right lower extremity. Patient was admitted to the hospital here several weeks ago underwent a knee washout via Dr. Wheat with IV antibiotics concern for septic joint at that time. Patient is knee looks significantly better since the last time we saw him here in the emergency department. Patient reports that he has been up ambulating more since he has been home and has developed a little bit of swelling in his lower extremity. Patient is ambulatory range of motion is good in the knee there is no erythema no warmth there is mild swelling but that is to be expected after surgery. Denies fever chills nausea vomiting diarrhea at this time. Patient reports that he also needs to have stitches taken out from the procedure. No other symptoms reported at this time. Medication Reconciliation Allergies: Coded Allergies: Penicillins (Unverified Allergy, Unknown, 02/26/25) codeine (Unverified Allergy, Unknown, 02/26/25) Scheduled Acetaminophen (Acetaminophen ER), 1 TAB PO Q8H, (Reported) Apixaban (Eliquis), 1 TAB PO BID, (Reported) Atorvastatin Calcium (Atorvastatin Calcium), 1 TAB PO DAILY, (Reported) Digoxin (LANOXIN tablet), 250 MCG PO DAILY Diltiazem HCl (Dilt-Xr), 120 MG PO BID Fluticasone Propionate (Fluticasone Propionate), 1 SPRAYS BOTHNARES DAILY, (Reported) Linezolid (Linezolid), 1 TAB PO Q12H Melatonin (Melatonin), 1 CAP PO HS, (Reported) Metoprolol Succinate (Metoprolol Succinate), 25 MG PO DAILY Tamsulosin Hcl* (Flomax*), 0.4 MG PO DAILY, (Reported) Turmeric/Turmeric Root Extract (Turmeric 500 mg Capsule), 1 CAP PO Q12H, (Reported) Discontinued Medications Metoprolol Tartrate (Metoprolol Tartrate), 1 TAB PO BID, (Reported) Tamsulosin Hcl* (Flomax*), (Reported) Past Medical History Past Medical History: Hypertension, Hernia Past Surgical History: orthopedic surgeries Other Past Surgical History: hernia repair Patient History: Patient reports no known family medical history. Alcohol Use: Abuse Physical Exam Vital Signs: Temperature: 97.6, Source: Oral, Heart Rate: 70, Respiratory Rate: 18, BP: 111/71, Pulse Oximetry: 99, Weight: 87.300 Oxygen Flow Rate: 0 Progress Results/Orders Results/Orders Orders - AIMEE PURDY [employer] HAND[employer]ER Vl Venous (03/12/25 11:26) Completed Orders - AIMEE PURDY [employer] Cbc/Diff (03/12/25 11:26) CMP (03/12/25 11:26) Vl Venous (03/12/25 11:26) Vital Signs 03/12/25 03/12/25 03/12/25 03/12/25 11:18 12:24 12:29 13:20 Temp 97.6 Pulse 85 65 70 Resp 17 17 18 B/P (MAP) 95/59 109/71 (84) 111/71 (84) Pulse Ox 99 98 99 O2 Flow Rate 0 Laboratory Tests Test 03/12/25 11:34 White Blood Count 11.3 H Red Blood Count 4.21 L Hemoglobin 12.6 L Hematocrit 37.6 L Mean Corpuscular Volume 89.4 Mean Corpuscular Hemoglobin 30.0 Mean Corpuscular Hemoglobin Concent 33.6 Red Cell Distribution Width 13.5 Platelet Count 466 H Mean Platelet Volume 7.1 L Neutrophils (%) (Auto) 79.3 H Lymphocytes (%) (Auto) 14.3 L Monocytes (%) (Auto) 3.7 Eosinophils (%) (Auto) 1.6 Basophils (%) (Auto) 1.1 H Neutrophils # (Auto) 9.0 H Lymphocytes # (Auto) 1.6 Monocytes # (Auto) 0.4 Eosinophils # (Auto) 0.2 Basophils # (Auto) 0.1 CBC Comment Sodium Level 138 Potassium Level 4.4 Chloride Level 103 Carbon Dioxide Level 28.3 Anion Gap 7 L Blood Urea Nitrogen 11 Creatinine 0.80 Estimated GFR/1.73 m2 > 90 BUN/Creatinine Ratio 13.8 Glucose Level 98 Calcium Level 8.8 Total Bilirubin 0.3 Aspartate Amino Transf (AST/SGOT) 20 Alanine Aminotransferase (ALT/SGPT) 38 Alkaline Phosphatase 90 Total Protein 7.2 Albumin 2.9 L Globulin 4.3 Albumin/Globulin Ratio 0.7 L Chemistry Comments Medical Decision Making Additional information obtaine: other Findings Chief Concern: Right lower extremity swelling following recent knee washout for septic arthritis Differential Diagnosis: Expected post-operative swelling Recurrent septic arthritis Deep vein thrombosis Post-operative hematoma Clinical Assessment and Decision-Making: The patient presents with mild right lower extremity swelling several weeks following arthroscopic knee washout and intravenous antibiotics for septic arthritis. The clinical presentation is most consistent with expected post- operative swelling rather than recurrent infection or other complications. Factors supporting benign post-operative swelling: Increased ambulation since discharge, which commonly precipitates mild lower extremity edema after knee surgery Absence of fever, erythema, or warmth on examination Good range of motion in the knee Significant clinical improvement since last emergency department visit No systemic symptoms (no fever, chills, nausea, vomiting, or diarrhea) Factors against recurrent septic arthritis: Post-operative septic arthritis typically presents with rubor, calor, and tumor, which are absent in this patient The WBC count of 11 10/?L is only mildly elevated and falls within the normal range for hospitalized patients without infection (reference range 1.6-14.5 10/?L) Postoperative leukocytosis is common after knee surgery, with 38% of patients demonstrating elevated WBC counts as part of normal physiologic response The threshold for diagnosing post-operative septic arthritis requires synovial fluid leukocyte count >20,000/?L with >70% polymorphonuclear cells, which was not indicated in this case DVT considerations: While DVT is a recognized complication after knee arthroscopy, the patient's clinical presentation lacks typical features such as significant pain, calf tenderness, or asymmetric swelling severity The mild nature of swelling and good ambulation make DVT less likely No additional workup pursued given low clinical suspicion Plan: Discharge home with reassurance regarding expected post-operative course Suture removal as indicated Continue ambulation with leg elevation when at rest to minimize swelling Return precautions provided for signs of infection (fever, increasing erythema, warmth, purulent drainage, worsening pain) or DVT symptoms (severe unilateral leg swelling, calf pain, shortness of breath) Follow-up with Dr. Wheat as scheduled Medical Decision-Making Complexity: Moderate complexity given recent septic arthritis requiring differentiation from recurrent infection, though clinical presentation strongly favors benign post-operative changes. Differential Dx:Considerations: Include: Alcohol abuse, Anxiety, Bipolar disorder, Conversion disorder, Delirium, Depression, Drug Overdose-Accidental, Drug Overdose-Intentional, Encephalopathy, Hallucinations, Homicidal, Liver failure, Panic disorder, Personality disorder, Renal failure, Respiratory failure, Schizophrenia, Substance abuse, Suicidal attempt, Suidical gesture, Other Departure Disposition: 01 HOME / SELF CARE / HOMELESS Impression: Primary Impression: Edema of lower extremity Additional Impression: Visit for suture removal Condition: Stable Discharge Instructions: Absorbable Suture Repair-Brief Additional Instructions: Wound Care Keep the surgical incision clean and dry for the first 48 hours after discharge. After 48 hours, you may shower normally and allow water to run over the incision. Pat the area dry gently with a clean towel. Do not soak the incision in a bathtub, pool, or hot tub until after the sutures are removed and the incision is fully healed. You may leave the incision open to air or cover it with a clean, dry bandage. Change the bandage daily or if it becomes wet or soiled. Suture Removal Your sutures should be removed 10-14 days after your procedure. Please schedule an appointment with Dr. Wheat's office or your primary care provider for suture removal. Do not attempt to remove the sutures yourself. Activity Continue to walk and move around as tolerated to prevent stiffness and promote healing. Elevate your leg when sitting or lying down to help reduce swelling. Avoid prolonged standing or walking that causes significant pain or swelling. Use any assistive devices (cane, walker) as recommended by your surgeon. Medications Continue taking your prescribed antibiotics exactly as directed until the entire course is completed. Take pain medication as prescribed or recommended. When to Return to the Emergency Department or Call Your Doctor Seek immediate medical attention if you develop any of the following signs of infection: Fever greater than 100.4F (38C) Purulent drainage (thick, yellow, green, or foul-smelling fluid) from the incision Increasing redness that extends beyond the wound margins, especially if spreading more than 2 inches (5 cm) from the incision Warmth around the incision site Increasing pain at the surgical site that is not controlled with pain medication Wound dehiscence (the incision opening up or ) Increasing swelling of the knee or leg that is significantly worse than before Chills, rigors, or feeling generally unwell Persistent drainage from the incision that continues beyond the first few days Also return if you experience: Chest pain or difficulty breathing Severe calf pain or swelling in one leg significantly more than the other Any other symptoms that concern you Follow-Up Appointments Schedule a follow-up appointment with Dr. hWeat as directed. Schedule an appointment with your primary care provider to monitor your recovery and complete your antibiotic course. Important Notes Most surgical site infections develop between 2-4 weeks after surgery, so remain vigilant for signs of infection even after you feel better. Some mild swelling and discomfort are normal after knee surgery, especially with increased activity. However, any signs of infection listed above require prompt evaluation. If you have questions or concerns about your recovery, contact Dr. Wheat's office during business hours. Referrals: NO PRIMARY CARE PROVIDER (PCP) Education Educated: Patient Educated regarding: diagnosis, treatment, need for follow up Signature Scribe Signature: A Attestation: Scribed for Aimee Purdy by SAYDA Darling . 03/12/25 13:47 AIMEE PURDY Mar 12, 2025 13:45
[2025-03-12 14:09] VITALS: BP 109/71; PULSE 73; RESP 18; O2SAT 99
== END 2025-03-12 14:11 | disposition home or self-care (01) ==
LOC: ER 11:02
DX: R60.0 Localized edema (principal); S81.811D Laceration without foreign body, right lower leg, subsequent encounter; I10 Essential (primary) hypertension; Z88.0 Allergy status to penicillin; Z88.5 Allergy status to narcotic agent; Z98.890 Other specified postprocedural states; X58.XXXD Exposure to other specified factors, subsequent encounter
CPT/HCPCS: 36415; 80053; 85025; 93971; 99284

== ENCOUNTER 2025-03-22 12:39 | Emergency (ER) | payer MEDICARE ==
[~2025-03-22] VITALS: Ht 182.9 cm; Wt 87.3 kg
--- NOTE | 2025-03-22 12:52 | Physician Documentation ---
History of Present Illness ~ General Stated Complaint: R KNEE SWELLING Primary Medical Doctor: scooter churchill Medication Reconciliation Allergies: Coded Allergies: Penicillins (Unverified Allergy, Unknown, 02/26/25) codeine (Unverified Allergy, Unknown, 02/26/25) Scheduled Acetaminophen (Acetaminophen ER), 1 TAB PO Q8H, (Reported) Apixaban (Eliquis), 1 TAB PO BID, (Reported) Atorvastatin Calcium (Atorvastatin Calcium), 1 TAB PO DAILY, (Reported) Digoxin (LANOXIN tablet), 250 MCG PO DAILY Diltiazem HCl (Dilt-Xr), 120 MG PO BID Fluticasone Propionate (Fluticasone Propionate), 1 SPRAYS BOTHNARES DAILY, (Reported) Linezolid (Linezolid), 1 TAB PO Q12H Melatonin (Melatonin), 1 CAP PO HS, (Reported) Metoprolol Succinate (Metoprolol Succinate), 25 MG PO DAILY Tamsulosin Hcl* (Flomax*), 0.4 MG PO DAILY, (Reported) Turmeric/Turmeric Root Extract (Turmeric 500 mg Capsule), 1 CAP PO Q12H, (Reported) Past Medical History Past Medical History: Hypertension, Hernia Past Surgical History: orthopedic surgeries Other Past Surgical History: hernia repair Patient History: Patient reports no known family medical history. Alcohol Use: Abuse Departure Referrals: NO PRIMARY CARE PROVIDER (PCP) DON MCCLAIN MD Mar 22, 2025 12:52
--- NOTE | 2025-03-22 13:12 | ELECTROCARDIOGRAPH REPORT ---
[facility] Test Date: 2025-03-22 Test Time: 13:11:52 Pat Name: JOSSIE CARBALLO Department: [facility]-ER Patient ID: [facility]-[id number] Room: Gender: M Test Developer: : 1950 Requested By: AYAKA REILLY Order Number: [id number] Reading MD: Dr. Quintin Lake Measurements Intervals [place] Rate: 83 P: 0 CO: 0 QRS: 23 QRSD: 86 T: 69 QT: 353 QTc: 415 Interpretive Statements Atrial fibrillation Borderline T abnormalities, anterior leads Electronically Signed On 03-24-2025 21:14:[address] Quintin Lake Please click the below link to view image of tracing.
--- NOTE | 2025-03-22 14:01 | Physician Documentation ---
History of Present Illness General Chief Complaint: Post-operative complication Stated Complaint: R KNEE SWELLING Time Seen by MD: 13:07 Primary Medical Doctor: scooter churchill Mode of Arrival: Ambulatory History of Present Illness Initial Comments 74 year old male presents to the emergency room for complaints of needing a bl ood draw. He states he had strep in his right knee. Dr. Angeles performed a surgery to have the strep removed and is currently taking antibiotics as prescribed. He states that he is supposed to get a blood draw every week and presents to have that his blood drawn. Patient states that he is feeling better and is becoming more mobile. Medication Reconciliation Allergies: Coded Allergies: Penicillins (Unverified Allergy, Unknown, 03/22/25) codeine (Unverified Allergy, Unknown, 03/22/25) Scheduled Acetaminophen (Acetaminophen ER), 1 TAB PO Q8H, (Reported) Apixaban (Eliquis), 1 TAB PO BID, (Reported) Atorvastatin Calcium (Atorvastatin Calcium), 1 TAB PO DAILY, (Reported) Digoxin (LANOXIN tablet), 250 MCG PO DAILY Diltiazem HCl (Dilt-Xr), 120 MG PO BID Fluticasone Propionate (Fluticasone Propionate), 1 SPRAYS BOTHNARES DAILY, (Reported) Linezolid (Linezolid), 1 TAB PO Q12H Melatonin (Melatonin), 1 CAP PO HS, (Reported) Metoprolol Succinate (Metoprolol Succinate), 25 MG PO DAILY Tamsulosin Hcl* (Flomax*), 0.4 MG PO DAILY, (Reported) Turmeric/Turmeric Root Extract (Turmeric 500 mg Capsule), 1 CAP PO Q12H, (Reported) Past Medical History Past Medical History: Hypertension, Hernia Past Surgical History: orthopedic surgeries Other Past Surgical History: hernia repair Alcohol Use: Abuse Review of Systems All Other Systems at this time: Reviewed and Negative ROS Patient was asked, but denied any other symptoms. All other systems are negative other than those mentioned above. Physical Exam Physical Exam Vital Signs: RN Vital Signs have been reviewed: Yes, Temperature: 97.0, Source: Temporal, Heart Rate: 90, Respiratory Rate: 19, BP: 121/73, Pulse Oximetry: 97, Weight: 87.270 Oxygen Flow Rate: 0 Pulse Oximetry Reflects: adequate oxygenation Physical Exam VITALS: Reviewed and as above. GENERAL: Alert, no apparent distress. HEENT: Normocephalic, atraumatic. PERRL, EOMI. Dry mucosa, no erythema. RESPIRATORY: Lungs clear, normal breath sounds, no respiratory distress. CHEST: No accessory muscle use, no retractions. CV: Regular rate and rhythm. No edema, no murmur, No: JVD GI: Soft, non-tender, bowel sounds present. No rebound, guarding, or rigidity. BACK: No CVA tenderness, no swelling. MUSCULOSKELETAL:Right knee is red and swollen. 1+ pitting edema in right leg. 20cm suture line to right knee. SKIN: Warm and dry, no rash. NEURO: Oriented x4. No motor or sensory deficit. PSYCH: Normal mood and affect, no agitation. Progress Results/Orders Results/Orders Completed Orders - OHLFS,AYAKA Castellon MD Stat Ekg (03/22/25 13:04) Cbc/Diff (03/22/25 13:35) Procalcitonin (03/22/25 13:35) Vital Signs 03/22/25 03/22/25 03/22/25 12:43 13:58 13:59 Temp 97.0 97.0 Pulse 100 90 Resp 16 19 B/P (MAP) 117/65 121/73 (89) Pulse Ox 99 97 O2 Flow Rate 0 0 Laboratory Tests Test 03/22/25 13:48 White Blood Count 9.4 Red Blood Count 4.11 L Hemoglobin 12.1 L Hematocrit 36.3 L Mean Corpuscular Volume 88.3 Mean Corpuscular Hemoglobin 29.4 Mean Corpuscular Hemoglobin Concent 33.3 Red Cell Distribution Width 13.5 Platelet Count 307 Mean Platelet Volume 7.1 L Neutrophils (%) (Auto) 72.5 Lymphocytes (%) (Auto) 19.8 L Monocytes (%) (Auto) 5.9 Eosinophils (%) (Auto) 0.9 Basophils (%) (Auto) 0.9 Neutrophils # (Auto) 6.8 Lymphocytes # (Auto) 1.9 Monocytes # (Auto) 0.6 Eosinophils # (Auto) 0.1 Basophils # (Auto) 0.1 CBC Comment Procalcitonin < 0.05 EKG/XRAY/CT/US/VASC/MRI EKG : Additional Comment 1311: EDMD Ohlfs interpreted EKG to show sinus rhythm at a rate of [address] change. Low voltages noted. Departure Time of Disposition: 14:12 Disposition: 01 HOME / SELF CARE / HOMELESS Impression: Primary Impression: General medical exam Condition: Stable Referrals: NO PRIMARY CARE PROVIDER (PCP) Education Educated: Patient Educated regarding: diagnosis, treatment, need for follow up Signature Scribe Signature: Scribed by Tiffanie Brumfield Attestation: The note accurately reflects work and decisions made by me.Ayaka Odom MD 03/22/25 14:37 AYAKA ODOM MD Mar 22, 2025 14:01
[2025-03-22 14:02] LABS: MEAN PLATELET VOLUME 7.1 FL (7.4-10.4); RED CELL DISTRIBUTION WIDTH 13.5 % (11.5-14.5)
[2025-03-22 14:38] VITALS: BP 108/73; PULSE 87; RESP 22; TEMP 97; O2SAT 99
[2025-03-22] MEDS ORDERED: OMEP40CA21 PO (14:50)
== END 2025-03-22 14:38 | disposition home or self-care (01) ==
LOC: ER 12:39
DX: Z00.00 Encounter for general adult medical examination without abnormal findings (principal); I48.91 Unspecified atrial fibrillation; F10.10 Alcohol abuse, uncomplicated; I10 Essential (primary) hypertension; Z88.0 Allergy status to penicillin; Z88.5 Allergy status to narcotic agent; Z98.890 Other specified postprocedural states; Z79.899 Other long term (current) drug therapy; Y90.9 Presence of alcohol in blood, level not specified
CPT/HCPCS: 36415; 84145; 85025; 93005; 99284